=== PATIENT | female | born 1945 | race American Indian/Alaskan Native ===

== ENCOUNTER 2016-05-28 06:03 | Inpatient (IN) | payer OTHER ==
[2016-05-28] VITALS (17 sets, daily range): BP systolic 84–178; BP diastolic 57–101
[~2016-05-28] VITALS: Ht 152.4 cm; Wt 69.6 kg
--- NOTE | ~2016-05-28 | EKG ---
[address] [address] ELECTROCARDIOGRAM REPORT Name: ELIDIA PERALTA Room #: 243- ADM IN M.R.#: [id number] Admission: 05/28/16 Attend Phys: Mandeep Riggs MD Discharge: Date of : 49 Report #: [id number] THIS REPORT FOR: //name// [facility] Test Date: 2016-06-03 Test Time: 20:16:04 Pat Name: ELIDIA PERALTA Department: Room: 243 Gender: F Fire Safety Inspector: José Miguel CIFUENTES : 1945 Requested By: Mandeep Riggs Order Number: [id number] MD: Nazario Jimenez Measurements Intervals [place] Rate: 111 P: 74 CA: 136 QRS: -22 QRSD: 89 T: 48 QT: 312 QTc: 424 Interpretive Statements Sinus tachycardia Borderline left axis deviation Low voltage, extremity leads Compared to ECG 05/30/2016 14:41:59 Low QRS voltage now present Myocardial infarct finding no longer present Electronically Signed On 06-06-2016 10:44:27 STOCK DRIER TENDER by Nazario Jimenez [email or web address] <ELECTRONICALLY SIGNED> By: Nazario Jimenez MD 06/06/16 1044 15 15 Nazario Jimenez MD /EPI
--- NOTE | ~2016-05-28 | HC ---
[facility] [place] [address] CONSULTATION Name: ELIDIA PERALTA Room #: 237-P ADM IN M.R.#: [id number] Admission: 05/28/16 Attend Phys: Mandeep Riggs MD Discharge: Date of : 49 Report #: [id number] THIS REPORT FOR: //name// CC: Mandeep Riggs MD REFERRING PHYSICIAN: Mandeep Riggs MD REASON FOR REFERRAL: Acute respiratory failure. HISTORY OF PRESENT ILLNESS: The patient is a 70-year-old white female who presents to the emergency room with progressive dyspnea. A pulmonary consultation was requested. The patient has known COPD. She continues to smoke. She started to notice that she was more short of breath starting yesterday. She was in fact seen by Dr. Riggs in the office. She was advised to get admitted, but the patient refused. She comes to the emergency room with acute respiratory distress. Initial arterial blood gas shows severe acute on chronic hypercapnic hypoxic respiratory failure. She was placed on BiPAP. Currently, she is tolerating BiPAP fairly well. Arterial blood gas has improved. Her chest x-ray on admission revealed no obvious consolidation air bronchogram. No effusion seen. PAST MEDICAL HISTORY: Remarkable for COPD/questionable asthma, tobacco abuse, having smoked most of her life, had a pack a day, hypertension, gastroesophageal reflux disease, irritable bowel syndrome, severe osteoarthritis, anxiety disorder. Should also include remote history of pulmonary embolus. ALLERGIES: CEPHALOSPORINS, it causes hives. HYDROCODONE, reactions not specified. HOME MEDICATIONS: Include Diovan, Singulair, Ray-Dur 400 mg p.o. b.i.d., K-Dur, Tawana, calcium D vitamin D supplements, Lumigan, brimonidine tartrate eyedrops, nebulized albuterol q. 4 hours p.r.n., nebulized ipratropium q. 4 hours p.r.n., Spiriva one capsule once a day, Pravachol, Centrum, Ventolin 2 puffs p.r.n., Zithromax, prednisone 40 mg once a day that was started yesterday, promethazine, Omnicef. FAMILY HISTORY: Noncontributory. SOCIAL HISTORY: She continues to smoke about a pack a day. She quit a few days ago. She had been down to half a pack a day. She denies any alcohol abuse. She is remarried. [facility] [address] [place] [address] CONSULTATION Name: ELIDIA PERALTA Room #: 237-P [facility]#: [id number] Admission: 05/28/16 Attend Phys: Mandeep Riggs MD Discharge: Date of : 49 Report #: [id number] REVIEW OF SYSTEMS: As mentioned above, otherwise 10-point system review deferred as the patient is currently on noninvasive positive pressure ventilation. PHYSICAL EXAMINATION: GENERAL: She is in moderate respiratory distress, tolerating BiPAP. VITAL SIGNS: Temperature is pending. Pulses 140, respiratory rate is 30, blood pressure 158 mmHg, saturation 96% on supplemental oxygen. HEENT: Normocephalic, atraumatic. NECK: Supple, without lymphadenopathy or thyromegaly. CHEST: Breath sounds are decreased bilaterally with mild expiratory wheezes. CARDIOVASCULAR: Normal S1, S2. No murmurs or gallop. There is no JVD. There is no carotid bruit. Pulses are 2+/4+ bilaterally. ABDOMEN: Soft, nontender, no organomegaly or masses felt. GENITOURINARY AND RECTAL: Deferred. EXTREMITIES: There is no edema, cyanosis or clubbing. LABORATORY DATA: Chest x-ray as mentioned above. Arterial blood gas on admission revealed pH 7.16, pCO2 98, pO2 78. Follow up arterial blood gas revealed pH 7.25, pCO2 73 and pO2 of 93 on FIO2 of 40%. Electrolytes unremarkable. WBC 10,200, hemoglobin is 16.7. There are no bandemia noted. IMPRESSION: 1. Acute on chronic hypercapnic hypoxic respiratory failure in this 70-year-old white female. Etiology is due to exacerbation of apparent severe chronic obstructive pulmonary disease with possible component of asthma. 2. Exacerbation of chronic obstructive pulmonary disease, severity unknown, but suspect significant impairment. 3. Continued tobacco abuse. According to family, she quit smoking approximately 3 days ago. 4. Probable chronic hypercapnia. Note that her blood gas shows severe hypercapnia with partial compensation with bicarbonate of 35 on admission. Suspect a baseline hypercarbia may be around 60 to mid 50s. Arterial blood gas when she is stable would be helpful. 5. Polycythemia perhaps related to chronic hypoxia or hemoconcentration due to dehydration due to increased work of breathing and insensible water loss. Follow up hemoglobin. If the patient remains polycythemic, she should be evaluated for hypoxia, and treat. If polycythemia persists, she may benefit from occasional phlebotomy. RECOMMENDATION: Continue noninvasive positive pressure ventilation, wean O2 for saturation 88-90% to avoid paradoxical hypercapnia. Corticosteroids and bronchodilators start along with broad spectrum antibiotics. She is allergic to cephalosporins, so will use Zosyn. Her reactions to cephalosporins is said to be hives. We will also initiate doxycycline. DVT and GI prophylaxis will be addressed. Follow up H and H, IV fluids. [facility] [address] [place] [address] CONSULTATION Name: ELIDIA PERALTA Room #: 237-P ADM IN M.R.#: [id number] Admission: 05/28/16 Attend Phys: Mandeep Riggs MD Discharge: Date of : 49 Report #: [id number] The patient should be consulted for smoke cessation when she is improved. Thank you for this consultation. <ELECTRONICALLY SIGNED> By: Phillip Hoff MD 05/28/16 1722 1145 1324 Phillip Hoff MD /nt
--- NOTE | ~2016-05-28 | O ---
[facility] [place] [address] OPERATIVE REPORT Name: ELIDIA PERALTA Room #: 243-P ADM IN M.R.#: [id number] Admission: 05/28/16 Attend Phys: Mandeep Riggs MD Discharge: Date of : 49 Report #: [id number] THIS REPORT FOR: //name// CC: Mandeep Riggs MD DATE OF SERVICE: 06/11/2016 DATE OF SURGERY: 06/11/2016. SURGEON: Ron Little MD PREOPERATIVE DIAGNOSES: 1. Respiratory failure. 2. Community-acquired pneumonia. 3. Chronic obstructive pulmonary disease. POSTOPERATIVE DIAGNOSES: 1. Respiratory failure. 2. Community-acquired pneumonia. 3. Chronic obstructive pulmonary disease. OPERATION PERFORMED: Tracheotomy with Yessenia flap. ANESTHESIA: General endotracheal. INDICATIONS: The patient is a 70-year-old female, admitted since 05/30/2016, after presenting through the emergency room with respiratory failure. She has failed weaning trials. I have been consulted to see her for tracheotomy. This was discussed with the family who had made the decision to proceed. DESCRIPTION OF PROCEDURE: The patient was transferred from the ICU to the operating room. She was transferred from her ICU bed to the operating room bed. A shoulder roll was placed. The neck was extended. General anesthesia was achieved via an indwelling endotracheal tube without problem. Then, the neck was marked through a preexisting thyroidectomy scar and injected with 1% Xylocaine with 1:100,000 epinephrine. She was then prepped and draped in a sterile fashion. The procedure began with an incision to the same scar. This was dissected down through scar tissue to the strap muscles. Elevation was made superiorly and inferiorly with a Harmonic scalpel. Strap muscles were then dissected off the trachea. There was dense scarring present from the previous tracheotomy. Care was taken to stay in the midline, and to avoid the tracheoesophageal groove, the soft tissue was dissected down to the inferior portion of the trachea where this was not eschared. This was done so that landmarks could be achieved. [facility] [address] [place] [address] OPERATIVE REPORT Name: ELIDIA PERALTA Room #: 243-P [facility] IN M.R.#: [id number] Admission: 05/28/16 Attend Phys: Mandeep Riggs MD Discharge: Date of : 47 Report #: [id number] Hemostasis was assured with bipolar cautery, although there was minimal bleeding. A cricoid hook was then placed, and the cricoid and the larynx elevated up and out of the neck. Entrance was then made into the trachea between the second and third tracheal ring. A standard Yessenia flap was created inferiorly based. The flap was then sutured to the inferior skin flap with interrupted 2-0 Vicryl. In consult with anesthesia, the indwelling endotracheal tube balloon was deflated, and this was removed. The trachea was suctioned, and a #6 cuffed nonfenestrated Shiley was placed without problem. Once in place, the skin edges were loosely approximated with interrupted 2-0 Vicryl. The flanges of the tracheotomy tube were secured to the skin with interrupted 2-0 silk, and then, Velcro trach ties applied. The patient tolerated the procedure well. There were no complications. Blood loss was 5 mL. She was transferred from the operating room back to the intensive care unit room without problem. <ELECTRONICALLY SIGNED> By: Ron Little MD 06/13/16 1526 1728 1914 Ron Little MD /nt
--- NOTE | ~2016-05-28 | H ---
[facility] [place] [address] HISTORY AND PHYSICAL Name: ELIDIA PERALTA Room #: 243-P ADM IN M.R.#: [id number] Admission: 05/28/16 Attend Phys: Mandeep Riggs MD Discharge: Date of : 49 Report #: [id number] THIS REPORT FOR: //name// CC: Sebas Riggs MD DATE OF SERVICE: 06/11/2016 Preoperative consultation note. SURGEON: Ron Little MD. REASON FOR CONSULTATION: Need for tracheotomy. HISTORY OF PRESENT ILLNESS: The patient is a 70-year-old female admitted on 05/28/2016, presenting to the emergency room with shortness of breath and progressive respiratory failure. She had been seen in Dr. Riggs's office 24 hours prior, treated with antibiotics and steroids, but worsening. She was found to have pneumonia, complicating history of COPD with a longstanding history of tobacco use. The patient has failed weaning trials and is currently intubated and ventilated. I have been asked to evaluate for placement of tracheotomy tube. PAST MEDICAL HISTORY: Significant for COPD, hypertension, reflux, irritable bowel syndrome, severe arthritis, and anxiety. Status post total thyroidectomy. MEDICATIONS: Contained in her MAR. ALLERGIES: CEFACLOR and HYDROCODONE. SOCIAL HISTORY: She is a longtime smoker, smoking a pack a day, drinks alcohol occasionally. She is and lives with her . REVIEW OF SYSTEMS: Difficult secondary to intubation. PHYSICAL EXAMINATION: GENERAL: A well-developed, 70-year-old female, appearing older than her stated age. VITAL SIGNS: Show temperature of 99.6, blood pressure of 119/67, pulse of 107, respirations of 17. She is ventilated and intubated. HEENT: She is normocephalic. Nasal exam shows a deviated septum. There was endotracheal tube and orogastric tube in place, difficult to examine. The hypopharynx could not be examined because of the same. NECK: Shows a midline trachea. There is a well-healed thyroidectomy scar present. The patient is status post thyroidectomy. [facility] [address] [place] [address] HISTORY AND PHYSICAL Name: ELIDIA PERALTA Room #: 243-P [facility] IN ..#: [id number] Admission: 05/28/16 Attend Phys: Mandeep Riggs MD Discharge: Date of : 47 Report #: [id number] LUNGS: Show ventilated breath sounds. LABORATORY DATA: Recent blood work shows white count of 9600 with hemoglobin of 9. The patient has elevated sodium of 151, with decreased potassium of 3.3, chloride of 110, BUN of 9, with creatinine of 0.3. Chest x-ray done this morning showed a small left pleural effusion with minor left lower lung infiltrate. ASSESSMENT: 1. Respiratory failure, felt secondary to community-acquired pneumonia. Day #12 with ventilation and intubation. The patient has been counseled by their medical team on options of tracheotomy. I also reviewed the indications, alternatives, benefits, and potential risks of tracheotomy. They understand and desire to proceed. This will be done this afternoon. 2. Chronic obstructive pulmonary disease. 3. Long-term tobacco smoker with continuing. 4. Ileus. 5. Anemia mixed. 6. Hypokalemia, on replacement. PLAN: Tracheotomy. Again, I have reviewed the procedure, indications, alternatives, benefits, potential risks with the patient's family, which was extended and present in the room. The patient also nodded awareness. They understand and desired to proceed. <ELECTRONICALLY SIGNED> By: Ron Little MD 06/11/16 1737 1527 1702 Ron Little MD /nt
--- NOTE | ~2016-05-28 | H ---
[facility] [place] [address] HISTORY AND PHYSICAL Name: ELIDIA PERALAT Room #: 251-P ADM IN M.R.#: [id number] Admission: 05/28/16 Attend Phys: Mandeep Riggs MD Discharge: Date of : 49 Report #: [id number] THIS REPORT FOR: //name// CC: Mandeep Riggs DATE OF SERVICE: 05/28/2016 CHIEF COMPLAINT: Shortness of air. HISTORY OF PRESENT ILLNESS: The patient is a 70-year-old female who presented to the ER this morning with shortness of air. She had been in our office the day before. We tried to admit her, but she declined. She was having shortness of air then. We did give her a steroid shot and some antibiotics. She has a history of COPD, apparently severe. She does continue to smoke in spite of that. PAST MEDICAL HISTORY: Her past history is significant for: 1. COPD. 2. Hypertension. 3. Reflux. 4. Irritable bowel. 5. Severe arthritis. 6. Anxiety. MEDICATIONS: Include valsartan and hydrochlorothiazide 160/12.5, Singulair 10 mg, Ray-Dur 400 b.i.d., potassium 20 mEq b.i.d., Tawana 180 mg a day, calcium daily, daily, brimonidine drops daily, albuterol p.r.n., Atrovent p.r.n., Pravachol 40 mg a day, folic acid daily, recently Zithromax and cefdinir and prednisone 40 mg. ALLERGIES: CEFACLOR and HYDROCODONE. SOCIAL HISTORY: She smokes still pack a day, does drink alcohol occasionally. No recreational drugs. She is and lives with her . REVIEW OF SYSTEMS: CONSTITUTIONAL: Positive for fatigue, shortness of air and weakness. HEENT: No headaches or visual changes. CHEST: Shortness of air and cough. No chest pain. GASTROINTESTINAL: No nausea, vomiting, diarrhea or constipation. GENITOURINARY: No burning or frequency. EXTREMITIES: No new joint pains: PHYSICAL EXAMINATION: VITAL SIGNS: Blood pressure in the ER 178/101, pulse was 149, respiratory rate was 36 and O2 sat was 92% on BiPAP, but it was only 70s on room air. [facility] [address] [place] [address] HISTORY AND PHYSICAL Name: ELIDIA PERALTA Room #: 251-P [facility] IN M.R.#: [id number] Admission: 05/28/16 Attend Phys: Mandeep Riggs MD Discharge: Date of : 49 Report #: [id number] GENERAL: She is in moderate respiratory distress, but she is awake. HEENT: Her mucous membranes are moist. NECK: Supple. No adenopathy, thyromegaly or bruits. CHEST: Shows diffuse wheeze and poor air movement. CARDIOVASCULAR: Tachycardia with regular rhythm. ABDOMEN: Soft. No masses. Bowel sounds are active. EXTREMITIES: Show no edema. Pulses are intact. LABORATORY DATA: EKG showed sinus tachycardia, currently 143. No acute ST-segment changes. ABG; A pH of 7.165, pCO2 of 98, pO2 of 78 and lactate is 2.26. Sodium 138, potassium 4.3, chloride 98, bicarbonate 35, BUN 10, creatinine 0.8 and glucose 150. Troponin less than 0.05. BNP 90. WBC is 10.2, hemoglobin 16.7, hematocrit 49.4 and platelet count 279,000. Chest x-ray shows air trapping, some interstitial markings that are increased from baseline. ASSESSMENT: Acute respiratory failure with hypercapnia. She has been placed on BiPAP. We will consult pulmonary. She is going to be intubated if necessary. She is a full code. We will give IV steroids, breathing treatments and antibiotics. We will give her Ativan for anxiety. Control her blood pressure with her basal meds as well. <ELECTRONICALLY SIGNED> By: Mandeep Riggs MD 05/30/16 1235 1028 1059 Mandeep Riggs MD /nt
--- NOTE | ~2016-05-28 | 2DMMODE ---
[facility] [place] [address] 2 D/M-MODE ECHOCARDIOGRAM Name: ELIDIA PERALTA Room #: 251-P [facility] IN ..#: [id number] Admission: 05/28/16 Attend Phys: Mandeep Riggs, Discharge: Date of : 49 Date of Service: 05/30/16 0727 Report #: [id number] THIS REPORT FOR: //name// Transthoracic Echocardiography Ordering physician: Yoana Almonte Referring physician: Yoana Almonte Funeral Car Driver: Kathy Rodrigues Indications/History: Pulmonary HTN, elevated troponin. Hx: COPD, current tobacco abuse, HTN BP: 178 / HR: 110bpm Height: 60in Weight: 129.7lb 106 Study data: M-mode, complete 2D, complete spectral Doppler, and color Doppler. Location: Bedside. Routine. Image quality was adequate. The study was technically limited due to poor patient compliance and restricted patient mobility. Patient in ICU sitting up in bed on breathing machine. 2D measurements Normal Normal LVID ED 33.7mm 36-57 IVS ED 1.2mm 6-11 LVID ES 24.3mm 23-40 LVPW ED 1.1mm 6-11 LA volume 27ml/m2 16-28 AoRoot diam 31.2mm 21-37 index ED LVOT diameter 20mm 18-23 Findings: Left ventricle: The cavity size was normal. Mild septal hypertrophy. Systolic function was normal. The estimated ejection fraction was in the range of 55% to 60%. Wall motion was normal. Right ventricle: The cavity size was normal. Systolic function was normal. Right atrium: The atrium was normal in size. Left atrium: The atrium was normal in size. Volume index: 27ml/m2 (S). [address] [address] 2 D/M-MODE ECHOCARDIOGRAM Name: ELIDIA PERALTA Room #: 251-P [facility] IN M.R.#: [id number] Admission: 05/28/16 Attend Phys: Mandeep Riggs, Discharge: Date of : 49 Date of Service: 05/30/16 0727 Report #: [id number] Aortic valve: Poorly visualized. Thickened leaflets. Doppler: There was no stenosis. No regurgitation. Peak velocity: 122.9cm/s (S). Mitral valve: Mildly thickened, mildly calcified leaflets . Doppler: There was no evidence for stenosis. Mild regurgitation. Peak E-wave velocity: 173.3cm/s. Peak gradient: 12mm Hg (D). Tricuspid valve: Structurally normal valve. Doppler: There was no evidence for stenosis. Mild regurgitation. Regurgitant peak velocity: 297.6cm/s. Peak RV-RA gradient: 35mm Hg (S). Pulmonic valve: Poorly visualized. Doppler: There was no evidence for stenosis. Pericardium: There was no pericardial effusion. Aorta: Aortic root: The aortic root was normal in size. Pulmonary artery: Systolic pressure was estimated to be 50mm Hg. Diastolic function: The study is not technically sufficient to allow evaluation of LV diastolic function due to tachycardia. Systemic veins: Inferior vena cava: The vessel was dilated; respirophasic changes in dimension were absent. Conclusions 1. Left ventricle: Systolic function was normal. The estimated ejection fraction was in the range of 55% to 60%. Wall motion was normal. 2. Aortic valve: Poorly visualized. There was no stenosis. No regurgitation. 3. Mitral valve: Mildly thickened, mildly calcified leaflets . Mild regurgitation. 4. Pericardium, extracardiac: There was no pericardial effusion. 5. Pulmonary arteries: Systolic pressure was estimated to be 50mm Hg. <ELECTRONICALLY SIGNED> By: Esau Bauman MD, [facility] 05/30/16902 0727 2 Esau Bauman MD, [facility] /briana
--- NOTE | ~2016-05-28 | EKG ---
[address] [place] [address] ELECTROCARDIOGRAM REPORT Name: ELIDIA PERALTA Room #: 170-1 ADM IN M.R.#: [id number] Admission: 05/28/16 Attend Phys: Mandeep Riggs MD Discharge: Date of : 49 Report #: [id number] THIS REPORT FOR: //name// [facility] ED Test Date: 2016-05-28 Test Time: 07:34:52 Pat Name: ELIDIA PERALTA Department: Room: 170 Gender: F Impregnating Machine Operator: rizwana : 1945 Requested By: Mily Wood Order Number: [id number] MD: Nazario Jimenez Measurements Intervals Prim Rate: 143 P: 69 UT: 223 QRS: -67 QRSD: 116 T: 18 QT: 330 QTc: 509 Interpretive Statements Sinus tachycardia Prolonged UT interval LAE, consider biatrial enlargement Nonspecific IVCD with LAD Inferior infarct, old Lateral leads are also involved No previous ECG available for comparison Electronically Signed On 05-28-2016 8:34:13 PASSENGER AGENT by Nazario Jimenez [email or web address] <ELECTRONICALLY SIGNED> By: Nazario Jimenez MD 05/28/1634 3 3 Nazario Jimenez MD /EPI
--- NOTE | ~2016-05-28 | P ---
[facility] [place] [address] PROCEDURE REPORT Name: ELIDIA PERALTA Room #: 435-P [facility] IN M.R.#: [id number] Admission: 05/28/16 Attend Phys: Mandeep Riggs MD Discharge: Date of : 49 Report #: [id number] THIS REPORT FOR: //name// CC: Mandeep Riggs DATE OF SERVICE: 06/16/2016 BRIEF HISTORY: The patient is a 70-year-old woman with dysphagia and a tracheostomy and malnutrition with need for enteral feedings. She currently is receiving nasogastric feedings. PREOPERATIVE DIAGNOSES: Dysphagia and malnutrition with a tracheostomy. POSTOPERATIVE DIAGNOSES: Dysphagia and malnutrition with a tracheostomy. MEDICATIONS: Deep sedation with propofol per Anesthesia. SPECIMEN: None. ESTIMATED BLOOD LOSS: 3 mL. NAME OF THE PROCEDURE: Percutaneous endoscopic gastrostomy and tube placement. FINDINGS: Prior to propofol sedation, procedure of PEG tube placement was discussed with the patient as well as potential risks and its complications. She indicates she understands and desires to proceed. DESCRIPTION OF PROCEDURE: With the patient in supine position, head and chest was raised about 15-20 degrees. Subsequently, the Sonatypei video endoscope was inserted in the cervical esophagus and advanced under direct vision into the stomach. Examination of esophagus revealed normal mucosa. The squamocolumnar junction was unremarkable. A hiatus hernia was not seen. Scope was advanced into the stomach, was examined on end view as well as retroflexed views. She had normal-appearing gastric mucosa. No ulcers were seen. No mass lesions were seen. No retained solids or liquids were seen. The stomach, pylorus, duodenal bulb and postbulbar sweep were inspected and noted to be within normal limits. The scope was withdrawn back into the stomach and it was fully insufflated with air. Upon insufflation of stomach with air, there was a very bright transilluminating light, just below the umbilicus, essentially in the midline or just slightly left to the midline. Using a probing finger, an indentation was made into the gastric lumen. Skin was infiltrated with Xylocaine using 6 SafeTrack technique, skinning needle was advanced into the gastric lumen under direct endoscopic vision without difficulty. Subsequently, 1 cm skin incision was made introducing needle and stylet advanced into the stomach without difficulty. A guidewire was inserted and the tube was pulled out of the mouth. Subsequently, a 20-Sami gastrostomy tube was advanced over the wire and [facility] [address] [place] [address] PROCEDURE REPORT Name: ELIDIA PERALTA Roderick Room #: 435-P [facility] IN .R.#: [id number] Admission: 05/28/16 Attend Phys: Mandeep Riggs MD Discharge: Date of : 49 Report #: [id number] bleeding tip seen coming through the incision was grasped and the tube was pulled into place. The endoscope was reinserted and final adjustments were made under direct endoscopic vision. The patient tolerated the procedure well. In addition, external restraining device was applied. DISPOSITION: PEG tube placed without difficulty. We will observe for several hours and then resume tube feedings later this evening. <ELECTRONICALLY SIGNED> By: Asael Molina MD 06/16/16 1943 1505 1818 Asael Molina MD /nt
--- NOTE | ~2016-05-28 | EKG ---
[address] [place] [address] ELECTROCARDIOGRAM REPORT Name: ELIDIA PERALTA Room #: 251-P ADM IN M.R.#: [id number] Admission: 05/28/16 Attend Phys: Mandeep Riggs MD Discharge: Date of : 49 Report #: [id number] THIS REPORT FOR: //name// [facility] Test Date: 2016-05-30 Test Time: 14:41:59 Pat Name: ELIDIA PERALTA Department: Room: 251 Gender: F Radiation Safety Officer: José Miguel CIFUENTES : 1945 Requested By: Yoana Almonte Order Number: [id number] MD: Esau Bauman Measurements Intervals [place] Rate: 100 P: 79 SC: 131 QRS: -40 QRSD: 88 T: 60 QT: 352 QTc: 454 Interpretive Statements Sinus tachycardia RSR' in V1 or V2, probably normal variant Inferior infarct, old No previous ECGs available for comparison Electronically Signed On 05-30-2016 15:05:33 REIMBURSEMENT REP by Esau Bauman [email or web address] <ELECTRONICALLY SIGNED> By: Esau Bauman MD, [facility] 05/30/16 1505 1441 1441 Esau Bauman MD, [facility] /EPI
[~2016-05-28 06:03] MED LIST: ALBUTEROL2.5 MG/31 INH; ALLEGRA ALLERG180 MG PO; AZITHROMYCIN 2250 MG; BETIMOL10 ML OPHTHALMIC; BILBERRY1 EAC1 PO; BRIMONIDINE TAR15 M1 OPHTHALMIC; CALCIUM 600 +1 EAC1 PO; CEFDINIR300 MG PO; CENTRUM ULTRA1 EACH PO; CHOLESTEROL MED; DIOVAN HCT 1601 EACH PO; FISH OIL 1,0001 EAC5 PO; IPRATROPIU0.2 MG/1 M INH; LUMIGAN2.5 M1 OPHTHALMIC; PERCOCET 5-3251 EACH PO; POTASSIUM20 PO; PRAVACHOL40 MG PO; PREDNISONE 10 M10 MG PO; PROMETHAZINE V480 M1 PO; RELAFEN500 MG PO; SINGULAIR 10 MG10 M1 PO; SPIRIVA INH; THEO-DUR200 MG PO; VENTOLIN HFA 1818 GM INH
[2016-05-28 06:14] LABS: ABG SAMPLE TYPE ARTERIAL; BE(vivo) 1.6 mmol/L (-2 to +3); HCO3 34.6 mmol/L (22.0-26.0); LACTATE 2.26 mmol/L (0.5-2.0); O2(CT) 22.6 mL/dL (15.0-23.0); PCO2 98.2 mmHg (35.0-45.0); PO2 78.4 mmHg (80.0-100.0); STICK SITE L.BRACHIAL; pH 7.165 (7.360-7.450); sO2 91.1 % (92.0-98.0); tCO2 37.6 mmol/L (24.0-30.0)
[2016-05-28 06:19] LABS: ABSOLUTE NEUTROPHILS 5.9 thou/uL (1.4-8.2); BASOPHILS 0.8 % (0.0-2.0); EOSINOPHILS 0.1 % (0.0-3.0); HEMATOCRIT 49.4 % (37.0-47.0); HEMOGLOBIN 16.7 gm/dL (12.0-15.0); LYMPHOCYTES 30.1 % (24.0-44.0); MCH 30.8 pg (26.0-34.0); MCHC 33.8 % (28.0-37.0); MCV 91.1 fL (80.0-100.0); MONOCYTES 10.7 % (1.0-8.0); PLATELET COUNT 279 thou/uL (150-400); POLYS 58.3 % (36.0-66.0); RBC 5.43 mil/uL (4.20-5.00); RDW 13.4 % (10.5-14.5); WBC 10.2 thou/uL (4.0-11.0)
[2016-05-28 06:27] LABS: CREATININE 0.8 mg/dL (0.6-1.3); POTASSIUM 4.3 mmol/L (3.5-5.1)
[2016-05-28 06:31] LABS: MANUAL DIFF NO
[2016-05-28 06:40] LABS: TROPONIN-I 0.05 ng/mL (<0.04-0.07)
[2016-05-28 08:29] LABS: ABG SAMPLE TYPE ARTERIAL; BE(vivo) 2.5 mmol/L (-2 to +3); HCO3 32.2 mmol/L (22.0-26.0); LACTATE 1.64 mmol/L (0.5-2.0); O2(CT) 21.1 mL/dL (15.0-23.0); O2Hb 95.5 % (92.0-98.0); PCO2 73.6 mmHg (35.0-45.0); PO2 93.8 mmHg (80.0-100.0); STICK SITE L.BRACHIAL; pH 7.259 (7.360-7.450); sO2 95.8 % (92.0-98.0); tCO2 34.5 mmol/L (24.0-30.0)
[2016-05-28 08:30] LABS: ABG COMMENT BIPAP 14/8
[2016-05-28 11:41] LABS: URINE BLOOD 2+ (Negative); URINE COLOR YELLOW; URINE GLUCOSE-RANDOM* NEGATIVE (Negative); URINE KETONES NEGATIVE (Negative); URINE LEUKOCYTES-REFLEX NEGATIVE (Negative); URINE PROTEIN (DIPSTICK) 3+ (Negative); URINE SPECIFIC GRAVITY >= 1.030 (1.003-1.035); URINE UROBILINOGEN 0.2 E.U./dl (0.2-1.0)
[2016-05-28 11:43] LABS: ICTOTEST (BILI CONFIRMATORY) Negative (Negative); URINE BILIRUBIN NEGATIVE (Negative)
[2016-05-28 12:05] LABS: FINE GRANULAR CASTS 4-10 Moderate /LPF (None Seen); HYALINE CASTS 4-10 Moderate /LPF (None Seen)
[2016-05-28 12:06] LABS: COARSE GRANULAR CASTS 4-10 Moderate /LPF (None Seen)
[2016-05-28 12:07] LABS: SQUAMOUS 0-3 Few /LPF (0-3)
[2016-05-28 12:08] LABS: CRYSTALS None Seen /LPF (None Seen); URINE RBC 3-10 Few /HPF (0-2); URINE WBC-REFLEX 6-15 Few /HPF (0-5)
[2016-05-29] VITALS (26 sets, daily range): BP systolic 123–178; BP diastolic 76–106
[2016-05-29 03:40] LABS: HEMATOCRIT 42.2 % (37.0-47.0); MCH 30.3 pg (26.0-34.0); MCHC 33.2 % (28.0-37.0); MCV 91.3 fL (80.0-100.0); RBC 4.62 mil/uL (4.20-5.00); RDW 12.9 % (10.5-14.5); WBC 2.8 thou/uL (4.0-11.0)
[2016-05-29 03:44] LABS: CALCIUM 7.8 mg/dL (8.5-10.1); POTASSIUM 4.2 mmol/L (3.5-5.1)
[2016-05-29 21:03] LABS: ABG SAMPLE TYPE ARTERIAL; BE(vivo) -0.5 mmol/L (-2 to +3); HCO3 29.7 mmol/L (22.0-26.0); O2(CT) 20.4 mL/dL (15.0-23.0); O2Hb 94.3 % (92.0-98.0); PCO2 74.9 mmHg (35.0-45.0); PO2 84.1 mmHg (80.0-100.0); STICK SITE R.BRACHIAL; pH 7.216 (7.360-7.450); sO2 93.8 % (92.0-98.0)
[2016-05-29 21:04] LABS: FIO2 40 %
[2016-05-29 21:38] LABS: ALBUMIN 3.2 g/dL (3.4-5.0); DIRECT BILIRUBIN 0.1 mg/dL (<0.1-0.3); TOTAL BILIRUBIN 0.3 mg/dL (<0.1-1.0); TOTAL PROTEIN 6.4 g/dL (6.4-8.2)
[2016-05-29 21:43] LABS: APTT 23.9 Seconds (24.5-32.8); INR 1.1
[2016-05-30] VITALS (77 sets, daily range): BP systolic 75–192; BP diastolic 20–131
[2016-05-30 06:26] LABS: HEMATOCRIT 48.3 % (37.0-47.0); HEMOGLOBIN 15.4 gm/dL (12.0-15.0); MCH 30.1 pg (26.0-34.0); MCHC 31.8 % (28.0-37.0); MCV 94.5 fL (80.0-100.0); RBC 5.11 mil/uL (4.20-5.00); RDW 13.6 % (10.5-14.5); WBC 8.2 thou/uL (4.0-11.0)
[2016-05-30 06:39] LABS: MAGNESIUM 2.2 mg/dL (1.8-2.4); PHOSPHORUS 2.9 mg/dL (2.5-4.9)
[2016-05-30 06:43] LABS: CALCIUM 8.5 mg/dL (8.5-10.1); CREATININE 0.8 mg/dL (0.6-1.3); POTASSIUM 4.2 mmol/L (3.5-5.1); TROPONIN-I 0.13 ng/mL (<0.04-0.07)
[2016-05-30 10:37] LABS: ABG SAMPLE TYPE ARTERIAL; BE(vivo) 2.8 mmol/L (-2 to +3); HCO3 31.9 mmol/L (22.0-26.0); LACTATE 1.24 mmol/L (0.5-2.0); O2(CT) 18.8 mL/dL (15.0-23.0); O2Hb 92.1 % (92.0-98.0); PO2 65.8 mmHg (80.0-100.0); sO2 89.6 % (92.0-98.0); tCO2 34.1 mmol/L (24.0-30.0)
[2016-05-30 10:38] LABS: PCO2 70.4 mmHg (35.0-45.0); STICK SITE L.RADIAL; pH 7.274 (7.360-7.450)
[2016-05-30 10:39] LABS: TIDAL VOLUME 500 ml
[2016-05-30 13:03] LABS: ABG SAMPLE TYPE ARTERIAL; BE(vivo) 5.6 mmol/L (-2 to +3); LACTATE 1.19 mmol/L (0.5-2.0); O2(CT) 19.5 mL/dL (15.0-23.0); O2Hb 95.1 % (92.0-98.0); PCO2 59.6 mmHg (35.0-45.0); PO2 78.8 mmHg (80.0-100.0); pH 7.361 (7.360-7.450); sO2 94.9 % (92.0-98.0); tCO2 34.8 mmol/L (24.0-30.0)
[2016-05-30 13:04] LABS: STICK SITE L.RADIAL; TIDAL VOLUME 450 ml
[2016-05-31] VITALS (24 sets, daily range): BP systolic 106–156; BP diastolic 69–96
[2016-05-31 04:45] LABS: HEMATOCRIT 40.6 % (37.0-47.0); MCH 30.2 pg (26.0-34.0); MCV 91.3 fL (80.0-100.0); RBC 4.45 mil/uL (4.20-5.00); RDW 13.3 % (10.5-14.5)
[2016-05-31 04:55] LABS: CALCIUM 7.9 mg/dL (8.5-10.1); CREATININE 0.6 mg/dL (0.6-1.3); POTASSIUM 3.5 mmol/L (3.5-5.1)
[2016-05-31 04:58] LABS: HEMOGLOBIN 13.4 gm/dL (12.0-15.0)
[2016-06-01] VITALS (23 sets, daily range): BP systolic 96–158; BP diastolic 61–97
[2016-06-02] VITALS (25 sets, daily range): BP systolic 112–151; BP diastolic 67–88
[2016-06-02 14:38] LABS: HEMOGLOBIN 12.6 gm/dL (12.0-15.0); MCH 30.1 pg (26.0-34.0); MCHC 33.1 % (28.0-37.0); RBC 4.17 mil/uL (4.20-5.00); RDW 13.7 % (10.5-14.5); WBC 5.6 thou/uL (4.0-11.0)
[2016-06-02 14:46] LABS: CALCIUM 8.5 mg/dL (8.5-10.1); CREATININE 0.6 mg/dL (0.6-1.3); MAGNESIUM 2.3 mg/dL (1.8-2.4); POTASSIUM 3.6 mmol/L (3.5-5.1)
[2016-06-03] VITALS (24 sets, daily range): BP systolic 120–163; BP diastolic 70–90
[2016-06-03 03:46] LABS: HEMATOCRIT 34.6 % (37.0-47.0); HEMOGLOBIN 11.6 gm/dL (12.0-15.0); MCH 31.3 pg (26.0-34.0); MCHC 33.5 % (28.0-37.0); MCV 93.4 fL (80.0-100.0); RBC 3.7 mil/uL (4.20-5.00); WBC 5.8 thou/uL (4.0-11.0)
[2016-06-03 03:58] LABS: CALCIUM 7.9 mg/dL (8.5-10.1); CREATININE 0.6 mg/dL (0.6-1.3)
[2016-06-03 04:12] LABS: POTASSIUM 5.3 mmol/L (3.5-5.1)
[2016-06-03 08:14] LABS: ABG SAMPLE TYPE ARTERIAL; BE(vivo) 5.9 mmol/L (-2 to +3); LACTATE 0.88 mmol/L (0.5-2.0); O2(CT) 17.8 mL/dL (15.0-23.0); O2Hb 96.3 % (92.0-98.0); PCO2 52.6 mmHg (35.0-45.0); pH 7.402 (7.360-7.450); sO2 97.2 % (92.0-98.0); tCO2 33.6 mmol/L (24.0-30.0)
[2016-06-03 08:17] LABS: STICK SITE R.RADIAL; TIDAL VOLUME 450 ml
[2016-06-04] VITALS (25 sets, daily range): BP systolic 101–154; BP diastolic 62–88
[2016-06-04 05:09] LABS: HEMATOCRIT 37.5 % (37.0-47.0); HEMOGLOBIN 12.1 gm/dL (12.0-15.0); MCH 30.1 pg (26.0-34.0); MCHC 32.1 % (28.0-37.0); MCV 93.7 fL (80.0-100.0); RDW 13.8 % (10.5-14.5); WBC 9.5 thou/uL (4.0-11.0)
[2016-06-04 05:18] LABS: CALCIUM 8.3 mg/dL (8.5-10.1); CREATININE 0.5 mg/dL (0.6-1.3); POTASSIUM 3.5 mmol/L (3.5-5.1)
[2016-06-04 12:47] LABS: ABG SAMPLE TYPE ARTERIAL; BE(vivo) 6.6 mmol/L (-2 to +3); HCO3 36.4 mmol/L (22.0-26.0); LACTATE 1.04 mmol/L (0.5-2.0); O2(CT) 18.9 mL/dL (15.0-23.0); O2Hb 93.7 % (92.0-98.0); PO2 78.5 mmHg (80.0-100.0); sO2 93.5 % (92.0-98.0); tCO2 38.8 mmol/L (24.0-30.0)
[2016-06-04 12:49] LABS: PCO2 78.8 mmHg (35.0-45.0); STICK SITE R.RADIAL; pH 7.282 (7.360-7.450)
[2016-06-04 12:50] LABS: Pressure Support 5 cm H20; TIDAL VOLUME 430 ml
[2016-06-05] VITALS (25 sets, daily range): BP systolic 95–160; BP diastolic 55–87
[2016-06-05 04:52] LABS: CALCIUM 8.5 mg/dL (8.5-10.1); CREATININE 0.5 mg/dL (0.6-1.3); POTASSIUM 4.2 mmol/L (3.5-5.1)
[2016-06-05 04:57] LABS: HEMATOCRIT 37.9 % (37.0-47.0); HEMOGLOBIN 12.1 gm/dL (12.0-15.0); MCH 30.1 pg (26.0-34.0); MCHC 31.9 % (28.0-37.0); MCV 94.3 fL (80.0-100.0); RBC 4.02 mil/uL (4.20-5.00); RDW 13.8 % (10.5-14.5); WBC 10.7 thou/uL (4.0-11.0)
[2016-06-06] VITALS (24 sets, daily range): BP systolic 100–147; BP diastolic 60–87
[2016-06-06 04:20] LABS: HEMATOCRIT 35.3 % (37.0-47.0); HEMOGLOBIN 11.2 gm/dL (12.0-15.0); MCH 29.4 pg (26.0-34.0); MCHC 31.6 % (28.0-37.0); RBC 3.8 mil/uL (4.20-5.00); RDW 13.6 % (10.5-14.5); WBC 14.4 thou/uL (4.0-11.0)
[2016-06-06 04:34] LABS: CALCIUM 8.4 mg/dL (8.5-10.1); CREATININE 0.4 mg/dL (0.6-1.3); POTASSIUM 4.5 mmol/L (3.5-5.1)
[2016-06-07] VITALS (25 sets, daily range): BP systolic 87–152; BP diastolic 52–94
[2016-06-07 04:30] LABS: HEMATOCRIT 31.1 % (37.0-47.0); HEMOGLOBIN 10.1 gm/dL (12.0-15.0); MCH 29.7 pg (26.0-34.0); MCHC 32.5 % (28.0-37.0); MCV 91.1 fL (80.0-100.0); RBC 3.42 mil/uL (4.20-5.00); RDW 13.7 % (10.5-14.5); WBC 14.4 thou/uL (4.0-11.0)
[2016-06-07 04:38] LABS: CALCIUM 8.3 mg/dL (8.5-10.1); CREATININE 0.4 mg/dL (0.6-1.3); POTASSIUM 4.4 mmol/L (3.5-5.1)
[2016-06-08] VITALS (20 sets, daily range): BP systolic 88–152; BP diastolic 48–88
[2016-06-08 15:54] LABS: ALBUMIN 2.1 g/dL (3.4-5.0); CALCIUM 8.2 mg/dL (8.5-10.1); CREATININE 0.4 mg/dL (0.6-1.3); POTASSIUM 4.3 mmol/L (3.5-5.1); TOTAL BILIRUBIN 0.4 mg/dL (<0.1-1.0); TOTAL PROTEIN 4.8 g/dL (6.4-8.2)
[2016-06-09] VITALS (23 sets, daily range): BP systolic 73–127; BP diastolic 45–72
[2016-06-09 05:00] LABS: HEMATOCRIT 26.2 % (37.0-47.0); HEMOGLOBIN 8.6 gm/dL (12.0-15.0); MCH 30.2 pg (26.0-34.0); MCHC 32.9 % (28.0-37.0); RBC 2.85 mil/uL (4.20-5.00); RDW 13.9 % (10.5-14.5)
[2016-06-09 05:06] LABS: CALCIUM 7.8 mg/dL (8.5-10.1); CREATININE 0.4 mg/dL (0.6-1.3)
[2016-06-10] VITALS (26 sets, daily range): BP systolic 76–171; BP diastolic 45–99
[2016-06-10 04:15] LABS: HEMATOCRIT 26.5 % (37.0-47.0); HEMOGLOBIN 8.9 gm/dL (12.0-15.0); MCH 30.5 pg (26.0-34.0); MCHC 33.4 % (28.0-37.0); MCV 91.4 fL (80.0-100.0); RBC 2.9 mil/uL (4.20-5.00); RDW 13.9 % (10.5-14.5); WBC 8.9 thou/uL (4.0-11.0)
[2016-06-10 04:25] LABS: CALCIUM 7.8 mg/dL (8.5-10.1); CREATININE 0.4 mg/dL (0.6-1.3); POTASSIUM 3.3 mmol/L (3.5-5.1)
[2016-06-10 12:22] LABS: ABG SAMPLE TYPE ARTERIAL; BE(vivo) 9.2 mmol/L (-2 to +3); HCO3 37.4 mmol/L (22.0-26.0); LACTATE 0.84 mmol/L (0.5-2.0); O2(CT) 15.5 mL/dL (15.0-23.0); O2Hb 92.2 % (92.0-98.0); PO2 73.2 mmHg (80.0-100.0); pH 7.336 (7.360-7.450); sO2 93.2 % (92.0-98.0); tCO2 39.6 mmol/L (24.0-30.0)
[2016-06-10 12:24] LABS: PCO2 71.6 mmHg (35.0-45.0)
[2016-06-10 12:25] LABS: ABG COMMENT CPAP; Pressure Support 8 cm H20
[2016-06-10 13:31] LABS: PROTIME 10.2 Seconds (9.3-11.4)
[2016-06-11] VITALS (12 sets, daily range): BP systolic 104–141; BP diastolic 55–74
[2016-06-11 06:19] LABS: MCH 30.6 pg (26.0-34.0); MCHC 33.3 % (28.0-37.0); MCV 91.8 fL (80.0-100.0); RBC 2.94 mil/uL (4.20-5.00); RDW 14.1 % (10.5-14.5); WBC 9.6 thou/uL (4.0-11.0)
[2016-06-11 06:28] LABS: CALCIUM 7.7 mg/dL (8.5-10.1); CREATININE 0.3 mg/dL (0.6-1.3); POTASSIUM 3.3 mmol/L (3.5-5.1)
[2016-06-11 20:06] LABS: URINE POTASSIUM 24.5 (25.0-125.0); URINE POTASSIUM-mEq/L 17.5 mmol/L (Not Estab.)
[2016-06-12] VITALS (24 sets, daily range): BP systolic 91–140; BP diastolic 55–84
[2016-06-12 04:16] LABS: HEMATOCRIT 25.6 % (37.0-47.0); HEMOGLOBIN 8.5 gm/dL (12.0-15.0); MCH 30.7 pg (26.0-34.0); MCHC 33.3 % (28.0-37.0); RBC 2.78 mil/uL (4.20-5.00); RDW 13.9 % (10.5-14.5); WBC 8.8 thou/uL (4.0-11.0)
[2016-06-12 04:31] LABS: CALCIUM 7.8 mg/dL (8.5-10.1); CREATININE 0.3 mg/dL (0.6-1.3); POTASSIUM 3.5 mmol/L (3.5-5.1)
[2016-06-13] VITALS (23 sets, daily range): BP systolic 93–134; BP diastolic 53–77
[2016-06-13 19:46] LABS: CALCIUM 7.4 mg/dL (8.5-10.1); CREATININE 0.3 mg/dL (0.6-1.3); POTASSIUM 3.1 mmol/L (3.5-5.1)
[2016-06-14] VITALS (23 sets, daily range): BP systolic 97–155; BP diastolic 55–89
[2016-06-14 04:35] LABS: HEMATOCRIT 28.3 % (37.0-47.0); HEMOGLOBIN 9.2 gm/dL (12.0-15.0); MCH 30.4 pg (26.0-34.0); MCHC 32.3 % (28.0-37.0); RBC 3.01 mil/uL (4.20-5.00); RDW 14.4 % (10.5-14.5); WBC 7.3 thou/uL (4.0-11.0)
[2016-06-14 04:51] LABS: CALCIUM 8.4 mg/dL (8.5-10.1); CREATININE 0.4 mg/dL (0.6-1.3); POTASSIUM 3.5 mmol/L (3.5-5.1)
[2016-06-15 06:03] VITALS: BP 135/71
[2016-06-15 06:29] LABS: CALCIUM 6.7 mg/dL (8.5-10.1); CREATININE 0.3 mg/dL (0.6-1.3)
[2016-06-15 06:36] LABS: POTASSIUM 2.9 mmol/L (3.5-5.1)
[2016-06-15 08:00] VITALS: BP 133/75
[2016-06-15 12:00] VITALS: BP 180/100
[2016-06-15 16:00] VITALS: BP 147/92
[2016-06-15 19:40] VITALS: BP 114/58
[2016-06-16] VITALS (7 sets, daily range): BP systolic 111–124; BP diastolic 58–66
[2016-06-16 05:32] LABS: HEMATOCRIT 25.8 % (37.0-47.0); HEMOGLOBIN 8.6 gm/dL (12.0-15.0); MCH 30.8 pg (26.0-34.0); MCHC 33.3 % (28.0-37.0); MCV 92.6 fL (80.0-100.0); RBC 2.79 mil/uL (4.20-5.00); RDW 14.7 % (10.5-14.5); WBC 6.6 thou/uL (4.0-11.0)
[2016-06-16 05:54] LABS: CALCIUM 8.3 mg/dL (8.5-10.1); CREATININE 0.3 mg/dL (0.6-1.3); POTASSIUM 3.7 mmol/L (3.5-5.1)
[2016-06-17 04:20] VITALS: BP 142/68
[2016-06-17 08:00] VITALS: BP 116/65
[2016-06-17 12:00] VITALS: BP 118/67
[2016-06-17 15:42] VITALS: BP 122/64
[2016-06-17 20:58] VITALS: BP 120/60
[2016-06-17 23:36] VITALS: BP 152/78
[2016-06-18 04:55] VITALS: BP 128/62
[2016-06-18 09:00] VITALS: BP 103/55
[2016-06-18] MEDS ORDERED: NYAMYC15 GM TOP (13:02)
[2016-06-18 13:53] VITALS: BP 125/78
[2016-06-18 17:11] VITALS: BP 127/79
[2016-08-08] MEDS ORDERED: DALIRESP500 MCG PO (13:44)
[2016-08-08] MEDS ORDERED: COZAAR 50 MG TA50 M2 PO (13:44)
[2016-08-08] MEDS ORDERED: CLONIDINE0.1 PO (13:45)
[2016-08-08] MEDS ORDERED: LEVOTHYROXINE0.05 MG PO (13:45)
[2016-08-08] MEDS ORDERED: ALLEGRA ALLERG180 MG PO (13:46)
[2016-08-08] MEDS ORDERED: LASIX 20 MG TAB20 MG PO (13:46)
[2016-08-08] MEDS ORDERED: KLOR-CON 1010 MEQ PO (13:46)
[2016-08-08] MEDS ORDERED: VITAMIN D31000 UNI2 PO (13:47)
[2016-08-08] MEDS ORDERED: MULTIVITAMINS PO (13:47)
[2016-08-08] MEDS ORDERED: CALCIUM 600 +1 EAC1 PO (13:48)
[2016-08-08] MEDS ORDERED: BRIMONIDINE TAR1 BO1 OP (13:51)
[2016-08-08] MEDS ORDERED: CEFDINIR300 MG PO (13:53)
== END 2016-06-18 19:45 | disposition short-term general hospital (02) | DRG 4 ==
LOC: ER 06:03 → EROBS 07:42 → ICU 07:42 → 4S 07:42 → ICU 08:44 → 4S 06-14 22:04
PROVIDERS: Emergency Medicine; Family Medicine; Internal Medicine Pulmonary Disease; Nurse Practitioner
PROC: 5A09457 Assistance with Respiratory Ventilation, 24-96 Consecutive Hours, Continuous Positive Airway Pressure (ICD-10-PCS; principal; 2016-05-28)
PROC: 0BH17EZ Insertion of Endotracheal Airway into Trachea, Via Natural or Artificial Opening (ICD-10-PCS; 2016-05-30)
PROC: 5A1955Z Respiratory Ventilation, Greater than 96 Consecutive Hours (ICD-10-PCS; 2016-05-30)
PROC: 05HB33Z Insertion of Infusion Device into Right Basilic Vein, Percutaneous Approach (ICD-10-PCS; 2016-05-30)
PROC: 0B110F4 Bypass Trachea to Cutaneous with Tracheostomy Device, Open Approach (ICD-10-PCS; 2016-06-11)
PROC: 0DH68UZ Insertion of Feeding Device into Stomach, Via Natural or Artificial Opening Endoscopic (ICD-10-PCS; 2016-06-16)
PROC: BD1BYZZ Fluoroscopy of Mouth/Oropharynx using Other Contrast (ICD-10-PCS; 2016-06-18)
DX: A41.9 Sepsis, unspecified organism (principal); J18.9 Pneumonia, unspecified organism; J96.21 Acute and chronic respiratory failure with hypoxia; J96.22 Acute and chronic respiratory failure with hypercapnia; E43 Unspecified severe protein-calorie malnutrition; J44.1 Chronic obstructive pulmonary disease with (acute) exacerbation; E87.0 Hyperosmolality and hypernatremia; K56.7 Ileus, unspecified; F41.9 Anxiety disorder, unspecified; D75.1 Secondary polycythemia; R65.20 Severe sepsis without septic shock; E86.0 Dehydration; F17.210 Nicotine dependence, cigarettes, uncomplicated; D64.9 Anemia, unspecified; E87.6 Hypokalemia; R13.10 Dysphagia, unspecified; E89.0 Postprocedural hypothyroidism; K21.9 Gastro-esophageal reflux disease without esophagitis; M19.90 Unspecified osteoarthritis, unspecified site; H40.9 Unspecified glaucoma; Z96.1 Presence of intraocular lens; H35.30 Unspecified macular degeneration; Z98.42 Cataract extraction status, left eye; Z68.30 Body mass index [BMI] 30.0-30.9, adult; Z98.41 Cataract extraction status, right eye; Z86.711 Personal history of pulmonary embolism; Z98.890 Other specified postprocedural states; Z88.1 Allergy status to other antibiotic agents; Z88.8 Allergy status to other drugs, medicaments and biological substances
CPT/HCPCS: 10078; 10100; 27000; 50101; 50386; 50398; 50517; 56526; 56528; 57006; 62110; 62900

== ENCOUNTER → 2016-10-13 | Outpatient (CLI) | payer OTHER ==
[~2016-10-13] MED LIST changes: +BRIMONIDINE TAR1 BO1 OP; +CLONIDINE0.1 PO; +COZAAR 50 MG TA50 M2 PO; +DALIRESP500 MCG PO; +KLOR-CON 1010 MEQ PO; +LASIX 20 MG TAB20 MG PO; +LEVOTHYROXINE0.05 MG PO; +MULTIVITAMINS PO; +NYAMYC15 GM TOP; +VITAMIN D31000 UNI2 PO
== END ==
LOC: ULTRA 12:58
DX: E04.2 Nontoxic multinodular goiter (principal); R22.1 Localized swelling, mass and lump, neck

== ENCOUNTER → 2017-09-28 | Outpatient (CLI) | payer OTHER | LOC: ULTRA 09-25 06:37 | DX: E04.1 Nontoxic single thyroid nodule (principal); E89.0 Postprocedural hypothyroidism ==

== ENCOUNTER → 2017-11-05 | Outpatient (CLI) | payer OTHER | LOC: RAD 10:22 | DX: J44.9 Chronic obstructive pulmonary disease, unspecified (principal) ==

== ENCOUNTER 2018-09-05 19:40 | Inpatient (IN) | payer OTHER ==
[~2018-09-05] VITALS: Ht 152.4 cm; Wt 45.4 kg
[2018-09-05 19:44] VITALS: BP 174/90
[2018-09-05 20:24] LABS: HEMATOCRIT 41.2 % (37.0-47.0); HEMOGLOBIN 13.9 gm/dL (12.0-15.0); MCH 29.8 pg (26.0-34.0); MCHC 33.7 g/dL (28.0-37.0); MCV 88.4 fL (80.0-100.0); RBC 4.66 mil/uL (4.20-5.00); RDW 13.4 % (10.5-14.5); WBC 15.1 thou/uL (4.0-11.0)
[2018-09-05 20:26] LABS: CALCIUM 10.6 mg/dL (8.5-10.1); CREATININE 0.6 mg/dL (0.6-1.0); POTASSIUM 3.2 mmol/L (3.5-5.1)
[2018-09-05 20:29] LABS: BE(vivo) 12.9 mmol/L (-2 to +3); HCO3 41.4 mmol/L (22.0-26.0); PO2 99.2 mmHg (80.0-100.0); pH 7.378 (7.360-7.450); sO2 97.1 % (92.0-98.0)
[2018-09-05 20:35] LABS: TROPONIN-I 0.07 ng/mL (<0.06)
[2018-09-05 21:48] VITALS: BP 171/89
[2018-09-05 22:08] VITALS: BP 171/89
[2018-09-05 22:25] VITALS: BP 183/94
[2018-09-05] MEDS ORDERED: ROBAXIN 750 MG750 M1 PO (22:42)
[2018-09-05] MEDS ORDERED: MUCINEX600 MG PO (23:05)
[2018-09-05] MEDS ORDERED: NICOTINE TRANSD21 M1 (23:07)
[2018-09-06 00:59] VITALS: BP 156/78
--- NOTE | 2018-09-06 01:29 | EKG ---
[address] [place] [address] ELECTROCARDIOGRAM REPORT Name: FABIANELIDIA Room #: 356-P ADM IN M.R.#: [id number] ������������������ Admission: 09/05/18 ������������������ Attend Phys: Mandeep Riggs MD Discharge: ������������������ Date of : 49 Report #: [id number] ����������������������������������������������������������������� [id number] THIS REPORT FOR: //name// [facility] ED Test Date: 2018-09-05 Test Time: 20:12:45 Pat Name: ELIDIA PERALTA Department: Room: 356 Gender: F Senior Lead Developer: WILLY : 1945 Requested By: Cory Cam Order Number: [id number] MD: Owen Norwood Measurements Intervals [place] Rate: 125 P: 81 ME: 135 QRS: -45 QRSD: 99 T: 70 QT: 282 QTc: 407 Interpretive Statements Sinus tachycardia Bi-atrial enlargement LAD Poor R-wave progression Baseline wander Nonspecific ST-T wave changes Compared to ECG 06/03/2016 20:16:04 no significant changes Electronically Signed On 09-06-2018 1:29:11 CDT by Owen Norwood [email or web address] ��������������������������������������������� <ELECTRONICALLY SIGNED> ���������������������������������������� By: Owen Norwood MD ��������������������������������������������� 09/06/18 0129 11 11 Owen Norwood MD /EPI
[2018-09-06] MEDS ORDERED: ZOLOFT25 MG PO (02:02)
[2018-09-06 03:28] VITALS: BP 151/77
--- NOTE | 2018-09-06 04:08 | NUR ---
Admission history and assessments completed. Careplan initiated. Received orders to resume patients home meds. Some non formulary, patients daughter to bring home meds in. Oxygenation optimal with 3L/NC, diminished breath sounds. Very short of air with any activity.
[2018-09-06 07:57] VITALS: BP 141/84
--- NOTE | 2018-09-06 09:43 | NUR ---
ASSESSMENT: CM REVIEWED CHART AND MET WITH PATIENT AT THE BEDSIDE. PT IS ALERT AND ORIENTED X4. PT WAS ADMITTED DUE TO SOA/ ACUTE ON CHRONIC RESPIRATORY FAILURE. PT REPORTS SHE LIVES IN A HOUSE ALONE. PT REPORTS ABOUT 2 STEPS TO ENTER THE HOME WITH HANDRAILS. PT REPORTS SHE DOES NOT USE STEPS ONCE INSIDE. PT REPORTS HAVING A WALKER AT HOME FOR AMBULATION. PT STATES SHE IS INDEPENDENT WITH ADLS AND HAS A GRAB BAR AND SHOWER CHAIR. PT HAS CONTINUOUS OXYGEN ARRANGED AT HOME STATING SHE IS NORMALLY ON 2.5-3L AT HER BASELINE AND IS SUPPLIED THROUGH [facility]. PT REPORTS SHE HAS HAD HH YEARS AGO AND UNSURE THE AGENCY AND HAD ALSO BEEN TO [facility] BACK IN 2017. PT REPORTS SHE ANTICIPATES SHE IS ABLE TO GO HOME AT DISCHARGE AND DOES NOT FEEL SHE WILL NEED HH. PT STATES HER DAUGHTER IS VERY SUPPORTIVE AND COMES TO SEE HER DAILY AND HELPS COOK HER MEALS AND CLEAN. CM WILL CONTINUE TO FOLLOW TO ASSIST NEEDED.
[2018-09-06 11:19] VITALS: BP 164/90
[2018-09-06 15:30] VITALS: BP 153/92
--- NOTE | 2018-09-06 17:40 | NUR ---
Assumed care of Pt at 0700. Pt alert and oriented, in no acute distress. frustrated about hospital not carrying her home meds. breathing comfortably on 3L NC. complains of headache and bloating that she says is common with IV steroids. up w/ 1 assist to BSC. HR 110-120's, sinus. calls appropriately. pulm consult today. pt voicing no particular concerns. sputum sample sent to lab. pt progressing toward poc goals.
[2018-09-06 19:02] VITALS: BP 147/83
[2018-09-07 04:12] VITALS: BP 168/93
--- NOTE | 2018-09-07 05:03 | NUR ---
PT MAKING SLOW PROGRESS TOWARDS GOALS. PT UP TO BSC WITH SBA. SOA WITH EXERTION TO WHICH SHE RECOVERS OVER SEVERAL MINUTES WITH CONTROLLED DEEP BREATHS. PT STATES SHE IS HOPING TO GO HOME TODAY. SEE CHARTING.
[2018-09-07 07:54] VITALS: BP 154/91
[2018-09-07] MEDS ORDERED: LEVAQUIN 500 M500 M2 PO (08:43)
[2018-09-07 11:04] VITALS: BP 133/79
[2018-09-07 13:06] VITALS: BP 133/79
--- NOTE | 2018-09-07 13:13 | NUR ---
ON-GOING ASSESSMENT: CM REVIEWED CHART AND MET WITH PATIENT AT THE BEDSIDE. PT HAS ORDERS TO DISCHARGE HOME TODAY WITH HH. CM DISCUSSED WITH PATIENT. PT STATING SHE DOES NOT HAVE A PREFERENCE OF HH COMPANY BUT DOES NOT WANT TO [facility] SHE DID NOT HAVE A GOOD EXPERINCE WITH THEM WITH A FAMILY MEMBER. CM SENT REFERRAL TO [facility].
--- NOTE | 2018-09-07 13:55 | NUR ---
Assumed care of patient at 0700. Vitals have been stable. Remains on 3L NC, which is home dose of oxygen. Patient still extremely SOB with minimal activity. Productive cough. Complaints this morning that the steroids were "messing up" her stomach. Steroids discontinued by Dr. Riggs and started on Protonix. Reports this afternoon that stomach has settled and feels a little better; was able to eat some lunch. Up with SBA to BSC to void. Fall precautions in place and calls appropriately. May discharge home today; patient states she feels "so-so" about going home. Wants to shower with daughter's help later this afternoon and see how she feels. Attempting to progress towards POC. Will continue to monitor.
--- NOTE | 2018-09-07 14:53 | NUR ---
ON-GOING ASSESSMENT: CM REVIEWED CHART AND MET WITH PATIENT AT THE BEDSIDE. PT IS POSSIBLE DISCHARGE HOME WITH HH. CM DISCUSSED WITH PATIENT AND SHE REPORTS SHE DOES NOT HAVE A PREFERENCE OF HH AGENCY BUT DOES NOT WANT TO USE [facility] SHE DID NOT HAVE A GOOD EXPERIENCE WITH A FAMILY MEMBER BEFORE. CM SENT REFERRAL TO [facility]. [facility] CONTACTED CM AND REPORTS THEY CAN ACCEPT PATIENT FOR HH SERVICES AT DISCHARGE. IF PATIENT DISCHARGES TODAY THEY WILL SEE PATIENT TOMORROW. PT REPORTS HER DAUGHTER IS ABLE TO BRING HER PORTABLE OXYGEN TANK AT DISCHARGE. [facility] FAX:[phone].
[2018-09-07 17:50] VITALS: BP 126/73
[2018-09-07 19:00] VITALS: BP 150/56
[2018-09-08 03:13] VITALS: BP 128/74
--- NOTE | 2018-09-08 06:58 | NUR ---
Pt. stated she slept fair during the night. O2 at 3L/NC. Shortness of breath with exertion. C/O abdominal pain after breathing tx. Ibuprofen given with good relief. Denies being in pain this am. Up with assist to bathroom. Verbalized she is ready to go home today.
[2018-09-08 07:45] VITALS: BP 117/68
--- NOTE | 2018-09-08 12:08 | NUR ---
PT ALERT AND ORIENTED TIMES FOUR. VSS, 96%3L, SR ON TELE. PT DENIES PAIN. C/O SOA ON EXCRETION. PT TOLERATES MEDS AND MEALS. PT UP TO BSC WITH ASSIST ON ONE. PLANS FOR DISCHARGE THIS AFTERNOON. FAMILY AT BEDSIDE. PT PROGRESSING TOWRADS POC GOALS.
[2018-09-08 12:12] VITALS: BP 139/83
--- NOTE | 2018-09-08 15:50 | NUR ---
on-going assessment: cm notified [facility] that patient is discharging home today. cm faxed d/c orders to [facility].
[2018-09-09 07:14] LABS: ADENOVIRUS Negative (Negative); INFLUENZA A Negative (Negative); INFLUENZA B Negative (Negative); METAPNEUMOVIRUS Negative (Negative); PARAINFLUENZA 1 Negative (Negative); PARAINFLUENZA 2 Negative (Negative); PARAINFLUENZA 3 Negative (Negative); RSV A Negative (Negative); RSV B Negative (Negative)
[2018-09-10 18:10] LABS: RHINOVIRUS Negative (Negative)
== END 2018-09-08 16:46 | disposition home health service (06) | DRG 871 ==
LOC: ER 19:40 → EROBS 21:29 → 3W 21:29
PROVIDERS: Emergency Medicine; Pediatrics; ADMIT Family Medicine
DX: A41.9 Sepsis, unspecified organism (principal); J96.21 Acute and chronic respiratory failure with hypoxia; J96.22 Acute and chronic respiratory failure with hypercapnia; J44.1 Chronic obstructive pulmonary disease with (acute) exacerbation; J20.9 Acute bronchitis, unspecified; I10 Essential (primary) hypertension; M47.9 Spondylosis, unspecified; H40.9 Unspecified glaucoma; E89.0 Postprocedural hypothyroidism; J45.909 Unspecified asthma, uncomplicated; I27.20 Pulmonary hypertension, unspecified; M81.0 Age-related osteoporosis without current pathological fracture; Z87.891 Personal history of nicotine dependence; Z90.49 Acquired absence of other specified parts of digestive tract; Z98.42 Cataract extraction status, left eye; Z98.41 Cataract extraction status, right eye; Z93.1 Gastrostomy status; Z88.6 Allergy status to analgesic agent; Z88.8 Allergy status to other drugs, medicaments and biological substances; Z79.899 Other long term (current) drug therapy
CPT/HCPCS: 10879

== ENCOUNTER 2018-10-05 13:29 | Inpatient (IN) | payer OTHER ==
[~2018-10-05] VITALS: Ht 157.5 cm; Wt 43.0 kg
[~2018-10-05 13:29] MED LIST changes: +LEVAQUIN 500 M500 M2 PO; +MUCINEX600 MG PO; +NICOTINE TRANSD21 M1; +ROBAXIN 750 MG750 M1 PO; +ZOLOFT25 MG PO
[2018-10-05 13:30] VITALS: BP 156/92
[2018-10-05 14:13] LABS: ABSOLUTE NEUTROPHILS 4.6 thou/uL (1.4-8.2); EOSINOPHILS 0.9 % (0.0-3.0); HEMOGLOBIN 12.3 gm/dL (12.0-15.0); LYMPHOCYTES 16.5 % (24.0-44.0); MCH 29.4 pg (26.0-34.0); MCHC 33.3 g/dL (28.0-37.0); MCV 88.1 fL (80.0-100.0); MONOCYTES 8.2 % (1.0-8.0); PLATELET COUNT 278 thou/uL (150-400); POLYS 73.4 % (36.0-66.0); WBC 6.3 thou/uL (4.0-11.0)
[2018-10-05 14:19] LABS: CALCIUM 9.6 mg/dL (8.5-10.1); CREATININE 0.5 mg/dL (0.6-1.0); POTASSIUM 3.7 mmol/L (3.5-5.1)
[2018-10-05 14:29] LABS: TROPONIN-I 0.11 ng/mL (<0.06)
[2018-10-05 14:33] LABS: BE(vivo) 11.1 mmol/L (-2 to +3); HCO3 41.1 mmol/L (22.0-26.0); PCO2 83.7 mmHg (35.0-45.0); PO2 199.7 mmHg (80.0-100.0); pH 7.309 (7.360-7.450); sO2 99.2 % (92.0-98.0)
[2018-10-05 15:13] VITALS: BP 144/84
[2018-10-05 15:45] VITALS: BP 156/86
--- NOTE | 2018-10-05 17:18 | EKG ---
[address] [address] ELECTROCARDIOGRAM REPORT Name: ELIDIA PERALTA Room #: 353-P ADM IN M.R.#: [id number] ������������������ Admission: 10/05/18 ������������������ Attend Phys: Mandeep Riggs MD Discharge: ������������������ Date of : 49 Report #: [id number] ����������������������������������������������������������������� [id number] THIS REPORT FOR: //name// [facility] ED Test Date: 2018-10-05 Test Time: 13:50:43 Pat Name: ELIDIA PERALTA Department: Room: [facility] Gender: F Managing Consultant: KKODPAKO : 1945 Requested By: Mookie Dennison Order Number: [id number] MD: Nazario Jimenez Measurements Intervals [place] Rate: 110 P: 83 MA: 138 QRS: -66 QRSD: 93 T: 63 QT: 341 QTc: 462 Interpretive Statements Sinus tachycardia LAD, consider left anterior fascicular block Anterior infarct, old Compared to ECG 09/05/2018 20:12:45 Myocardial infarct finding now present Poor R-wave progression no longer present ST (T wave) deviation no longer present Electronically Signed On 10-05-2018 17:18:05 CDT by Nazario Jimenez [email or web address] ��������������������������������������������� <ELECTRONICALLY SIGNED> ���������������������������������������� By: Nazario Jimenez MD ��������������������������������������������� 10/05/18 1718 1350 1350 Nazario Jimenez MD /EPI
--- NOTE | 2018-10-05 17:53 | NUR ---
PATIENT ADMIT TO UNIT AT 1530 FROM ER. A/O X4. HAS HIGH LEVEL ANXIEY. PERFER ON 15L NBR. EVEN RN RT EXPLAINED TO PATIENT. PATIENT DENIES PAIN. STB ASSISTED TO BCS. WILL KEEP MONITOR.
[2018-10-05] MEDS ORDERED: NICOTINE TOP (18:15)
[2018-10-05 19:40] VITALS: BP 148/83
[2018-10-05] MEDS ORDERED: XALATAN2.5 ML OPHTHALMIC (20:03)
[2018-10-06 05:26] LABS: ABSOLUTE NEUTROPHILS 2.6 thou/uL (1.4-8.2); BASOPHILS 0.4 % (0.0-2.0); HEMATOCRIT 41.7 % (37.0-47.0); HEMOGLOBIN 13.7 gm/dL (12.0-15.0); LYMPHOCYTES 17.4 % (24.0-44.0); MCH 29.3 pg (26.0-34.0); MONOCYTES 3.6 % (1.0-8.0); PLATELET COUNT 298 thou/uL (150-400); POLYS 78.6 % (36.0-66.0); RBC 4.69 mil/uL (4.20-5.00); RDW 14.1 % (10.5-14.5); WBC 3.3 thou/uL (4.0-11.0)
[2018-10-06 05:37] VITALS: BP 142/59; BP 153/93
[2018-10-06 05:55] LABS: ALBUMIN 4.1 g/dL (3.4-5.0); CALCIUM 9.7 mg/dL (8.5-10.1); CREATININE 0.7 mg/dL (0.6-1.0); POTASSIUM 4.1 mmol/L (3.5-5.1); TOTAL BILIRUBIN 0.5 mg/dL (<0.1-1.0); TOTAL PROTEIN 7.6 g/dL (6.4-8.2)
--- NOTE | 2018-10-06 06:03 | NUR ---
PATIENT IS PROGRESSING SLOWLY IN HER CARE PLAN. VITAL SIGNS STABLE WITH PATIENT HAVING NPO COMPLAINTS OF PAIN OR NAUSEA. FULLY ORIENTED, PATIENT IS ABLE TO CALL APPROPRIATELY FOR NEEDS AND PARTICIPATE IN PLAN OF CARE. BREATHING STABLE OVERNIGHT ON FOUR LITERS NASAL CANNULA. PATIENT CAN BE HIGHLY ANXIOUS AT TIMES. ANXIETY MEDICATION PROVIDED TO GOOD AFFECT WITH PATIENT STATING THAT SHE "FEELS BETTER." PATIENT WAS ABLE TO AMBULATE TO BEDSIDE COMMODE MULTIPLE TIMES WITH ASSISTANCE INCIDENT FREE. CONTINUE PLAN OF CARE.
[2018-10-06 07:49] VITALS: BP 187/101
[2018-10-06 08:40] LABS: BE(vivo) 12.3 mmol/L (-2 to +3); HCO3 39.6 mmol/L (22.0-26.0); PCO2 62.1 mmHg (35.0-45.0); PO2 58.2 mmHg (80.0-100.0); pH 7.423 (7.360-7.450)
--- NOTE | 2018-10-06 10:28 | NUR ---
care of pt assumed this am @ ~0700. pt noted to be sleeping quietly and comfortably in bed while rn received report from noc rn. pt awakened in report and denied any concerns or requests at this time. pt later assessed and co soa so she requested to sit at the side of the bed to "catch my breath". pt w/ o2 @ 4lt nc on at this time, she states her baseline is 2-3lt per nc at home. pt noted her need to lean on and over something to help her breath better this am. pt denies a productive cough at this time. pt veralized recent weight loss, noted dietary consult w/ her today. pt noted to have many extra requests for her meals (ex extra sugars, butters, cream vs 2% milk etc). pt aware of her htn this am, and states she is taking htn medication which needs to be ordered as well as other home medications. pt verbalized "my daughter is suppose to be taking care of me, but is not doing a very good job". pt states her daughter does not live w/ her. pt had an abg this am, had to be stuck twice, that caused her great pain and stress, she states "they won't do that to me again". dr. blake at this am to see pt.
[2018-10-06 11:24] VITALS: BP 187/101
[2018-10-06 12:17] VITALS: BP 187/101
--- NOTE | 2018-10-06 12:21 | NUR ---
Case opened to follow for dc planning. Jai Alai Player visited with the pt at bedside. Her son Edinson was here briefly to visit. The pt asked for him to be added to the contact list to get information. Dtr Zina and son Anthony are her dpoa's for health care and finances. She will ask them to bring in a copy. She was sob during our conversation. She reports feeling very weak. She is legally blind. She was here a month ago and discharged to home with HH services per [facility]. She is still recieving their services and would like to have them [place]. HH options discussed and choice letter reveiwed. Pt unable to sign due to vision issues. [facility] notified of admission and can resume at [place]. The pt reports that she has home o2 with AHP and a rwalker. She has an 80 lbs dog "her baby" at home that she needs to be able to care for when she returns home. She reports that her dtr is taking care of him while she is here. She denies need for SNF at [place] and wants to return home with hh although she is concerned about weakness and recent weight loss. She reports her dtr is very involved and support. She helps with errands, shopping and meal prep. Jai Alai Player assisted the pt with her lunch setup. Support provided. Will ask for therapy orders and following for resumption of HH at [place].
[2018-10-06 16:05] VITALS: BP 121/65
[2018-10-06 19:33] VITALS: BP 110/71
[2018-10-07 03:43] VITALS: BP 130/87
--- NOTE | 2018-10-07 03:48 | NUR ---
ASSUMED CARE OF PT AT 1900. A&Ox4, ANXIOUS AT TIMES. O2 SAT WAS 87% ON 4L O2 AT EVENING VS. DAUGHTER AT BEDSIDE WAS VERY CONCERNED STATING AT HOME O2 SAT WAS IN 90'S AND UP TO 95 AT TIMES AND NEVER THAT LOW. HR WAS IN 120'S. SOLUMEDROL GIVEN, PRN BREATHING TX GIVEN. CONTACTED DR POTTS. HE ORDERED ABG. PT REFUSED, STATING LAST ABG'S HURT AND SHE DIDN'T WANT TO DO IT. WOULD ONLY DO PART OF HER BREATHING TX. STATED SHE WAS FINE. DAUGHTER CHANGED HER MIND ABOUT MORE TX'S AND ENCOURAGED PT TO DO WHAT SHE WANTED. MONITORED OVER NOC. O2 SAT WAS 90% ON 4L O2 ON LAST CHECK. HR 105-120 OVER NOC. AFEBRILE. NO COUGH. UP IN CHAIR AND BED. ATE SNACKS, 3 YOGURTS AND SOME CRACKERS. USED BSC TO VOID. PROGRESSING TOWARDS POC GOALS. WILL CONTINUE TO PROVIDE CARE AND MONITOR.
[2018-10-07 07:22] VITALS: BP 146/83
--- NOTE | 2018-10-07 12:21 | NUR ---
Assumed care of patient at 0700. Vitals have been stable, remains ST on telemetry, rates 100s-130s. Complaints of headache this morning, relieved with PRN Ibuprofen. PRN Xanax given as well with decrease in anxiety. Patient reports feeling somewhat better this morning, states her breathing has improved since admission. Titrated down to 3L NC this morning and maintaining oxygen saturations. Lungs are diminished and wheezy; non-productive cough. Patient refuses yellow socks, but agreeable to other fall precautions. Bed alarm in place and calls appropriately when needing assistance up. Up with SBA to commode. SOB with exertion. No BM since admission; prune juice given this morning, awaiting results. Passing gas. Okay to transfer to senior suites per Dr. Riggs this morning. Telemetry discontinued. Report called to Kat. Awaiting room assignment. Slowly progressing towards POC. Will continue to monitor.
--- NOTE | 2018-10-07 14:42 | NUR ---
KEVIN reviewed chart. Pt is slowly progressing towards goals for discharge home. Plan is for pt to return home and resume HH services with [facility]. SW faxed clinical info to [facility] and notified liaison. KEVIN is following to assist as needed with discharge planning.
[2018-10-07 20:00] VITALS: BP 128/79
--- NOTE | 2018-10-08 04:46 | NUR ---
PATIENT ALERT AND ORIENTED X4. BREATH SOUNDS HAVE WHEEZING IN UPPER LOBES AND DIMINISHED THROUGHOUT. RESP WERE 28, RAPID AND SHALLOW. INSTRUCTED PATIENT TO RELAX. XANAX WAS GIVEN. HR WAS ELEVATED ALSO TO 122. OTHER VS WERE STABLE. PATIENT UP TO BSC. DENIES PAIN. SLEPT MOST OF NIGHT. PATIENT LEGALLY BLIND.
--- NOTE | 2018-10-08 09:47 | NUR ---
Followup: Pt is now eating much better. States appetite is good and intake has been nearly 100%. 90% intake observed from breakfast tray this morning. States she loves the Ensure Puddings, 100% BID. No new wt to assess, requested updated wt. Moving to low nutrition risk.
[2018-10-08 10:28] VITALS: BP 137/76
--- NOTE | 2018-10-08 13:18 | NUR ---
SW reviewed chart and spoke with nursing. Pt is slowly progressing towards goals for discharge. Pt remains on IV steroids. No weekend discharge anticipated. SW updated [facility] liaison. Discharge plan is for pt to return home and resume HH services with [facility]. Contact info for [facility] place in pt's discharge summary in case of weekend discharge. Final discharge orders/summary will need to be faxed when available. KEVIN is following to assist as needed with discharge planning. [facility]--
--- NOTE | 2018-10-08 15:43 | NUR ---
ASSUMED CARE AT 0700, SHIFT ASSESSMENT DONE, MEDS GIVEN, VSS. DENIES ANY PAIN, NAUSEA, VOMITING. RECEIVED ONE DOSE OF LASIX AND ALBUMIN THIS AM. REMAINS ON 3L NC. WILL CONTINUE TO ASSESS AND ASSIST WITH ADLs NEEDED.
[2018-10-08 19:40] VITALS: BP 156/85
--- NOTE | 2018-10-09 05:08 | NUR ---
PATIENT ALERT AND ORIENTED X4. UP TO BSC WITH ONE ASSIST. 02NC 3L. LUNGS COARSE. RT TREATMENTS PER ORDER. EDEMA 3+ TO LOWER LEGS, ENCOURAGED TO KEEP LEGS UP IN THE BED. COOPERATIVE WITH CARE. DENIES PAIN. MEDICATED FOR ANXIETY. RESTING QUIETLY THROUGHOUT THE NIGHT. WILL MONITOR.
[2018-10-09 07:30] VITALS: BP 149/87
--- NOTE | 2018-10-09 08:53 | NUR ---
PATIENT CARE WAS ASSUMED AT 0715.PATIENT IS ALERT AND ORIENTED X4.PT HAS SOB WITH ACTIVITY.PT HAS NO COMPLAINS OF PAIN AT THIS TIME.RT TREATMENTS ARE IN PLACE.FALL PRECAUTIONS ARE IN PLACE.PT USES BSC DUE TO SOB, WITH STANDBY ASSIST.PT HAS CALL LIGHT,PHONE, AND PERSONAL BELONGIGS WITHIN REACH.
[2018-10-09 09:26] LABS: CREATININE 0.7 mg/dL (0.6-1.0); POTASSIUM 3.6 mmol/L (3.5-5.1)
[2018-10-09 19:27] VITALS: BP 158/90
--- NOTE | 2018-10-10 05:17 | NUR ---
PATIENT ALERT AND ORIENTED X4. UP TO BSC. 02NC 3L. SOME SOA NOTED WITH EXERTION. C/O ANXIETY AND MEDICATED WITH GOOD RESULTS. LOTION PLACED ON BILATERAL FEET DUE TO SCALY SKIN WITH GOOD RELIEF. DENIES PAIN. SALINE LOCK PATENT FOR FLUSH. REFUSES CPAP AT NIGHT. RT TX PER ORDER. RESTING QUIETLY AT TIME OF NOTE. WILL MONITOR.
[2018-10-10 07:59] VITALS: BP 138/90
--- NOTE | 2018-10-10 18:06 | NUR ---
ASUMED CARE OF PATIENT AT 0715, PATIENT ALERT AND ORIENTED X 4. UP WITH ASSIST WITH WALKER IF AMBULATING TO THE BATHROOM, SHE IS UP TO [facility]DEP[facility]. PATIENT DENIED PAIN THIS AM, BUT C/O PAIN THIS EVENING, MOTRIN 800MG 1 TABLETS GIVEN. PATIENT HAS LEFT FOREARM IV IN PLACE, FLUSHED WITH NS AND REMAINS PATENT. PATIENT C/O ANXIETY THIS AM, XANAX 0.5MG 1 TABLET GIVEN. PATIENT C/O DIZZINESS AND NAUSEA, THIS RN CALLED DR POTTS, RECEIVED ORDER FOR ANTIVERT 25MG EVERY 8HR/PRN FOR DIZZINESS AND ZOFRAN 4 MG IV EVERY 4 HOURS/PRN NAUSEA. BOTH MEDICATIONS GIVEN, PATIENT TOOK A NAP AND FEELS BETTER. PATIENT REFUSED BED CHANGE, WAS WAITING ON HER DAUGHTER TO HELP HER SHOWER AND REFUSED UNTIL THE AM. PATIENT HAS 02 AT 3 LITERS/NC AND RECEIVES BREATHING TREATMENTS SCHEDULED. WILL CONTINUE TO MONITOR.
[2018-10-10 20:05] VITALS: BP 116/57
--- NOTE | 2018-10-11 04:05 | NUR ---
PATIENT ALERT AND ORIENTED X4. DROWSY THIS EVENING. SLEEPING AFTER TAKING ROUTINE MEDICATION. 02NC AT 3L. UP TO BSC TO VOID. SLEPT THROUGHOUT THE NIGHT. REFUSED CPAP. NO C/O NAUSEA, DIZZINESS OR PAIN. WILL MONITOR.
[2018-10-11 08:12] VITALS: BP 136/83
[2018-10-11] MEDS ORDERED: PREDNISONE 10 M10 MG PO (10:49)
--- NOTE | 2018-10-11 11:51 | NUR ---
DISCHARGE NOTE: SW reviewed chart and spoke with nursing. Pt is medically stable for discharge home today and has orders to resume HH services through [facility]. SW faxed discharge orders/summary to [facility] and notified liaison. SW met with pt at bedside to discuss discharge plan. Pt is aware and agreeable with plan. [employer] V[employer] letter on chart. Pt states her family will provide transportation home. Contact info for [facility] placed in pt's discharge summary. No additional SW needs identified at this time, but is available to assist should needs arise.
--- NOTE | 2018-10-11 18:36 | NUR ---
ASSUMED CARE OF PATIENT AT 0715, PATIENT ALERT AND ORIENTED X 4. PATIENT DENIES PAIN THIS SHIFT. PATIENT HAS O2 AT 3 LITERS/NC. DR POTTS HERE THIS AM, PATIENT WILL DISCHARGE TO HOME WITH HOMEHEALTH. DR MARTINEZ SAW THE PATIENT, PATIENT REFUSED HEPARIN. DAUGHTER HERE TO TRANSPORT PATIENT HOME. ALL DISCHARGE PAPERWORK AND ALL PERSONAL BELONGINGS SENT WITH THE PATIENT. LEFT FOREARM IV REMOVED PRIOR TO DISCHARGE.
== END 2018-10-11 18:47 | disposition home health service (06) | DRG 189 ==
LOC: ER 13:29 → 3W 14:49 → EROBS 14:49 → 3W 15:26 → SICU 10-07 15:31
PROVIDERS: Emergency Medicine; Pediatrics; ADMIT Family Medicine
DX: J96.21 Acute and chronic respiratory failure with hypoxia (principal); E43 Unspecified severe protein-calorie malnutrition; J44.1 Chronic obstructive pulmonary disease with (acute) exacerbation; Z68.1 Body mass index [BMI] 19.9 or less, adult; M19.90 Unspecified osteoarthritis, unspecified site; I10 Essential (primary) hypertension; K58.9 Irritable bowel syndrome, unspecified; F41.9 Anxiety disorder, unspecified; J96.22 Acute and chronic respiratory failure with hypercapnia; I27.20 Pulmonary hypertension, unspecified; K21.9 Gastro-esophageal reflux disease without esophagitis; M81.0 Age-related osteoporosis without current pathological fracture; H40.9 Unspecified glaucoma; H35.30 Unspecified macular degeneration; Z88.8 Allergy status to other drugs, medicaments and biological substances; Z90.49 Acquired absence of other specified parts of digestive tract; Z99.81 Dependence on supplemental oxygen; Z82.49 Family history of ischemic heart disease and other diseases of the circulatory system; Z80.9 Family history of malignant neoplasm, unspecified; Z83.6 Family history of other diseases of the respiratory system; Z87.891 Personal history of nicotine dependence
CPT/HCPCS: 10879; 15002

== ENCOUNTER 2018-11-04 13:55 | Inpatient (IN) | payer OTHER ==
[~2018-11-04] VITALS: Ht 152.4 cm; Wt 44.9 kg
[~2018-11-04 13:55] MED LIST changes: +NICOTINE TOP; +XALATAN2.5 ML OPHTHALMIC
[2018-11-04 14:55] LABS: ABSOLUTE NEUTROPHILS 6.4 thou/uL (1.4-8.2); BASOPHILS 0.6 % (0.0-2.0); EOSINOPHILS 0.4 % (0.0-3.0); HEMATOCRIT 36.6 % (37.0-47.0); HEMOGLOBIN 12.6 gm/dL (12.0-15.0); LYMPHOCYTES 7.2 % (24.0-44.0); MCH 29.7 pg (26.0-34.0); MCHC 34.5 g/dL (28.0-37.0); MCV 86.1 fL (80.0-100.0); MONOCYTES 6.9 % (1.0-8.0); PLATELET COUNT 358 thou/uL (150-400); POLYS 84.9 % (36.0-66.0); RBC 4.25 mil/uL (4.20-5.00); RDW 14.3 % (10.5-14.5); WBC 7.5 thou/uL (4.0-11.0)
[2018-11-04 15:10] LABS: ALBUMIN 3.6 g/dL (3.4-5.0); ANION GAP < 0 mmol/L (7-16); BUN 9 mg/dL (7-18); CALCIUM 9.5 mg/dL (8.5-10.1); CHLORIDE 78 mmol/L (98-107); CREATININE 0.5 mg/dL (0.6-1.0); GLUCOSE 134 mg/dL (74-106); SGOT 20 U/L (15-37); SGPT 18 U/L (30-65); SODIUM 120 mmol/L (136-145); TOTAL BILIRUBIN 0.8 mg/dL (<0.1-1.0); TOTAL PROTEIN 6.8 g/dL (6.4-8.2)
[2018-11-04 15:13] LABS: CO2 45 mmol/L (21-32); POTASSIUM 2.9 mmol/L (3.5-5.1)
[2018-11-04 15:33] LABS: BE(vivo) 13.7 mmol/L (-2 to +3); HCO3 41.6 mmol/L (22.0-26.0); PCO2 68.7 mmHg (35.0-45.0); PO2 72.4 mmHg (80.0-100.0)
[2018-11-04] MEDS ORDERED: ALPHAGAN P5 ML OPHTHALMIC (15:37)
[2018-11-04] MEDS ORDERED: LASIX 40 MG TAB40 M2 PO (15:41)
[2018-11-04] MEDS ORDERED: ROBAXIN 750 MG750 M1 PO (15:42)
[2018-11-04] MEDS ORDERED: IPRATROPIU0.2 MG/1 M INH (15:44)
[2018-11-04] MEDS ORDERED: SPIRIVA INH (15:44)
[2018-11-04] MEDS ORDERED: XANAX 0.5 MG0.5 MG PO (15:45)
[2018-11-04] MEDS ORDERED: IRBESARTAN-HCT1 EACH PO (15:45)
[2018-11-04] MEDS ORDERED: SYMBICORT160 MCG/4. INH (15:46)
[2018-11-04] MEDS ORDERED: ZANTAC 150MG T150 MG PO (15:46)
[2018-11-04 17:59] VITALS: BP 143/84
[2018-11-04 18:52] VITALS: BP 160/88
[2018-11-04 19:59] VITALS: BP 144/83
--- NOTE | 2018-11-05 03:49 | NUR ---
ASSESSMENT: PT REMAIN ALERT AND ORIENT TIMES THREE. C/O SOB, RT TX GIVEN WITH GOOD RESULTS. DENIES PAIN, DID C/O SLIGHT MASTERS BUT STATE THAT IT WAS OK. SLEPT GOOD AFTER PRN XANAX. SON WAS AT THE BEDSIDE FOR A SHORT TIME. ST PER MONITOR. TOLERATING PO INTAKE. UO ADEQUATE AMTS PER SHIFT. SALINE LOCKED POST NS WITH 20K. 02 AT 4 LITERS, USES 3 LITERS AT HOME. SKIN DRY WITH PREDISONE LOOK. SLOW PROGRESS TOWARDS DC GOALS., WILL CONTINUE TO MONITOR.
[2018-11-05 04:17] VITALS: BP 139/82
[2018-11-05 05:33] LABS: CALCIUM 9.4 mg/dL (8.5-10.1); CREATININE 0.5 mg/dL (0.6-1.0); POTASSIUM 4.3 mmol/L (3.5-5.1)
[2018-11-05 07:28] VITALS: BP 123/72
--- NOTE | 2018-11-05 09:29 | EKG ---
[address] [place] [address] ELECTROCARDIOGRAM REPORT Name: ELIDIA PERALTA Room #: 353-P ADM IN M.R.#: [id number] ������������������ Admission: 11/04/18 ������������������ Attend Phys: Mandeep Riggs MD Discharge: ������������������ Date of : 49 Report #: [id number] ����������������������������������������������������������������� [id number] THIS REPORT FOR: //name// [facility] ED Test Date: 2018-11-04 Test Time: 15:12:11 Pat Name: ELIDIA PERALTA Department: Room: [facility] Gender: F Data Software Engineer: JOHN : 1945 Requested By: Nathaly Owen Order Number: [id number] MD: Esau Bauman Measurements Intervals [place] Rate: 108 P: 79 VT: 146 QRS: -49 QRSD: 99 T: 69 QT: 320 QTc: 429 Interpretive Statements Sinus tachycardia Inferior infarct, age indeterminate Anteroseptal infarct, old Baseline wander in lead(s) V5 Compared to ECG 10/05/2018 13:50:43 Inferior Q waves are more prominent Electronically Signed On 11-05-2018 9:29:25 CDT by Esau Bauman [email or web address] ��������������������������������������������� <ELECTRONICALLY SIGNED> ���������������������������������������� By: Esau Bauman MD, [facility] ��������������������������������������������� 11/05/18 0929 1512 1512 Esau Bauman MD, [facility] /EPI
--- NOTE | 2018-11-05 10:55 | NUR ---
ASSUMED PATIENT CARE AT 0715. A&OX4. NO COMPLAINTS OF PAIN. PATIENT FEELING LESS WEAK THAN YESTERDAY. ON 4L NC. WEARS 3L NC AT HOME. PATIENT IRRITATED ABOUT GOING DOWN FOR A CHEST X-RAY. NURSE EXPLAINED THAT IF THEY USED A PORTABLE MACHINE THEY COULD ONLY GET ONE VIEW AND MULTIPLE VIEWS WERE ORDERED. PATIENT AGREEABLE TO GO DOWN. PATIENT ANXIOUS UPON RETURN TO FLOOR. XANAX ORDERED FOR ANXIETY. PATIENT WORRIED ABOUT DOG AT HOME. PATIENT WORKING TOWARDS GOALS.
[2018-11-05 11:56] VITALS: BP 115/71
[2018-11-05 13:37] VITALS: BP 115/71
--- NOTE | 2018-11-05 13:57 | NUR ---
INITIAL ASSESSMENT: KEVIN reviewed chart and spoke with nursing and attending physician. Pt was admitted from home due to dehydration. Pt with hx of COPD. Pt was recently discharge home with HH services on 10/11/18. KEVIN met with pt at bedside. Introduced role of SW. Pt is alert/orientated x 4. Pt is legally blind. Pt reports she lives at home alone. Prior to admission, pt was using a walker and has home O2 in place through [facility]. Normally, pt is on 3L of continuous O2. Pt is currently on service with [facility]. Pt has been to [facility] in the past. Plan is for pt to discharge home and resume HH services. KEVIN faxed clinical info to [facility] and notified liaison. KEVIN spoke with Cristóbal RN with HH, who states that pt may need to consider a higher level of care in the near future, due to her vision deficits. Pt has family support, but not 24 hour care. KEVIN updated attending physician. Should pt be ready for discharge home over the weekend, final discharge orders and summary will need to be faxed to [facility]. Contact info for HH placed in pt's discharge summary. KEVIN is following to assist as needed with discharge planning. [facility]--
[2018-11-05 15:33] VITALS: BP 141/82
[2018-11-05 19:58] VITALS: BP 153/94
--- NOTE | 2018-11-06 03:18 | NUR ---
PATIENT IS ALERT AND ORIENTED. PATIENT IS SBA TO THE BSC. PATIENT IS ON 4LNC. PATEINT IS WEARING MASK TO SLEEP AT HS DUE TO MOUTH BREATHING PATIENT IS SUPPOSED TO WEAR C PAP HS BUT REFUSES. PATIENT CAN BE ANXIOUS. PATIENT DENIES PAIN. PATIENT IS NSR TO ST ON TELE. PATIENT LIVES AT HOME ALONE. PATIENT IS RESTING COMFORTABLY IN BED. WCM. PATIENT IS PROGRESSING TO GOALS
[2018-11-06 04:56] VITALS: BP 177/111
[2018-11-06 06:26] LABS: CALCIUM 9.2 mg/dL (8.5-10.1); CREATININE 0.5 mg/dL (0.6-1.0); POTASSIUM 4.2 mmol/L (3.5-5.1)
[2018-11-06 07:26] VITALS: BP 146/88
--- NOTE | 2018-11-06 14:02 | NUR ---
ASSUMED PATIENT CARE AT 0715. A&OX4. COMPLAINTS OF A HEADACHE IN THE MORNING. IBUPROFEN ORDERED. DR. POTTS WANTING TO SEND PATIENT TO [facility] TODAY BUT THE PATIENT NEEDS THREE MIDNIGHTS. PATIENT MAY GO TOMORROW IF BED AVAILABLE. PATIENT VERY TEARFUL TODAY DUE TO PERSONAL FAMILY ISSUE. STAND BY ASSIST. WORKING TOWARDS GOALS.
[2018-11-06 16:07] VITALS: BP 155/93
[2018-11-06 19:26] VITALS: BP 157/87
--- NOTE | 2018-11-06 22:00 | NUR ---
MACHINE OPERATOR CANE CUTTER ACTIVATED FOR C/O CP. UPON ASSESSMENT, PT ANXIOUS AND MILD SOA NOTED. LABS AND EKG OBTAINED. MD CALLED WITH ORDERS RECEIVED. SHORTLY AFTER FIRST SL NITRO GIVEN, PT STATED SHE IS JUST HAVING AN ANXIETY ATTACK DUE TO THE ANNIVERSARY OF HER GRANDDAUGHTER'S MURDER. SEE RAPID RESPONSE INTERVENTION FOR FURTHER DOCUMENTATION.
[2018-11-07 04:50] VITALS: BP 152/91
[2018-11-07 07:05] VITALS: BP 150/85
--- NOTE | 2018-11-07 08:29 | NUR ---
PATIENT IS SLOWLY PROGRESSING IN HER CARE PLAN. VITAL SIGNS MOSTLY STABLE WITH NURSE NOTING SUSTAINED TACHYCARDIA ON PATIENT EARLY IN SHIFT. PATIENT COMPLAINED OF SUB STERNAL CHEST PAIN WHICH CAUSED NURSE TO INITIATE RAPID RESPONSE ON PATIENT. ORDERS RECEIVED FOR STAT EKG WITH CT OF CHEST TO RULE OUT PE. BOTH DIAGNOSTIC PROCEDURES CAME BACK NEGATIVE FOR PE/PA. PATIENT REMAINED ALERT AND ORIENTED DURING SHIFT BU WAS HIGHLY ANXIOUS THROUGHOUT. PATIENT DID HAVE COMPLAINTS OF CHEST PAIN EARLY IN SHIFT WHICH RESOLVED SHORTLY AFTER RAPID RESPONSE. UP MULTIPLE TIMES TO BEDSIDE COMMODE WITH ASSISTANCE INCIDENT FREE. PATIENT DID STATE TO NURSE THAT A TWENTY DOLLAR BILL WAS MISSING FROM [employer] FOLLOWING DAUGHTER TAKING IT HOME FROM HOSPITAL, AND IT IS PATIENTS BELIEF THAT IT WAS TAKEN FROM HER DURING HER STAY HERE. NURSE NOTIFIED ELIGIBILITY CONSULTANT AND FILED AN INCIDENT REPORT. CONTINUE PLAN OF CARE.
--- NOTE | 2018-11-07 15:04 | NUR ---
ASSUMED PATIENT CARE AT 0715. A&OX4. NO COMPLAINTS OF PAIN. PATIENT WAS EXTREMELY ANXIOUS OVERNIGHT. DR. POTTS ORDERED AN EXTRA DOSE OF ANXIETY MEDICATION FOR PATIENT. PATIENT SLEPT MOST OF THE MORNING. UP TO CHAIR FOR LUNCH. PATIENTS HEART RATE STILL ELEVATED IN THE 120'S, CTA NEGATIVE FOR PE. PATIENT SLOWLY PROGRESSING TOWARDS GOALS. PLAN IS TO DISCHARGE TO [facility] TOMORROW.
[2018-11-07 15:27] VITALS: BP 119/62
[2018-11-07 20:00] VITALS: BP 105/52
[2018-11-08 04:00] VITALS: BP 121/54
[2018-11-08 07:20] VITALS: BP 133/75
[2018-11-08 07:55] VITALS: BP 145/75
--- NOTE | 2018-11-08 07:55 | NUR ---
PATIENT IS PROGRESSING SLOWLY IN HER CARE PLAN. VITAL SIGNS STABLE WITH PATIENT HAVING NO COMPLAINTS OF NAUSEA. PATIENT DID COMPLAIN OF PAIN IN FORM OF HEADACHE WHICH WAS TREATED BY MEDICATION AND NON PHARMACOLOGICAL INTERVENTION. FULLY ORIENTED, PATIENT IS ABLE TO CALL FOR REQUESTS. NURSE HAS NOTED MARKED ANXIETY IN PATIENT BUT HAS BEEN UNABLE TO TREAT IT THROUGH MEDICATION DUE TO PATIENT REFUSAL. PATIENT IS UPSET WITH MEDICAL STAFF OVER PRN MEDICATION GIVEN TO HER YESTERDAY DURING RAPID RESPONSE, AND SAYS THAT SHE "DOESN'T FEEL GOOD". BREATHING STABLE ON OXYGEN EVIDENCED BY SPOT OXYGENATION CHECKS. PATIENT HAS BEEN UP TO BEDSIDE COMMODE MULTIPLE TIMES WITH ASSISTANCE INCIDENT FREE. CONTINUE PLAN OF CARE.
--- NOTE | 2018-11-08 08:41 | EKG ---
[address] [address] ELECTROCARDIOGRAM REPORT Name: ELIDIA PERALTA Room #: 353-P ADM IN M.R.#: [id number] ������������������ Admission: 11/04/18 ������������������ Attend Phys: Mandeep Riggs MD Discharge: ������������������ Date of : 49 Report #: [id number] ����������������������������������������������������������������� [id number] THIS REPORT FOR: //name// [facility] Test Date: 2018-11-06 Test Time: 20:14:17 Pat Name: ELIDIA PERALTA Department: Room: 353 Gender: F Senior Biostatistician/Group Leader: rachel : 1945 Requested By: Mandeep Riggs Order Number: [id number] MD: Naazrio Jimenez Measurements Intervals [place] Rate: 126 P: 73 CT: 137 QRS: -44 QRSD: 91 T: 62 QT: 297 QTc: 430 Interpretive Statements Sinus tachycardia Left atrial enlargement Left axis deviation RSR' in V1 or V2, probably normal variant Abnormal inferior Q waves Consider anterior infarct Compared to ECG 11/04/2018 15:12:11 Electronically Signed On 11-08-2018 8:41:15 CDT by Nazario Jimenez [email or web address] ��������������������������������������������� <ELECTRONICALLY SIGNED> ���������������������������������������� By: Nazario Jimenez MD ��������������������������������������������� 11/08/18 0841 13 13 Nazario Jimenez MD /EPI
--- NOTE | 2018-11-08 10:44 | NUR ---
DISCHARGE NOTE: KEVIN reviewed chart and spoke with nursing and attending physician. Pt is medically stable for discharge today. Recommendation made for pt to go to post-acute care. KEVIN met with pt at bedside to discuss discharge plan. Options discussed. Pt agreeable with referral to [facility]. KEVIN faxed clinical info and discharge orders/summary for review. [facility] does have a bed for pt today. Awaiting transportation time. Pt's PCP to follow her at [facility]. Chart copy ordered. Nursing to call report. KEVIN updated [facility] lia[facility]. KEVIN is following to finalize discharge.
[2018-11-08 11:18] VITALS: BP 122/63
--- NOTE | 2018-11-08 11:30 | NUR ---
DP let Reese/nurse 3w know that the patient will be picked up to go to [facility] today at 1300. Also gave him the number to call report [phone]
--- NOTE | 2018-11-08 15:29 | NUR ---
ASsumed care of PT at 0700. PT AOx4 in no acute distress. >92% spo2 on 4L NC. wheezy to auscultation. voicing no complaints. vitals stable. anticipate d/c to [facility] at approx 1600. sinus on telemetry.
== END 2018-11-08 17:34 | DRG 683 ==
LOC: ER 13:55 → EROBS 16:29 → 3W 16:29
PROVIDERS: Emergency Medicine; Nurse Practitioner Family; ADMIT Family Medicine
DX: N17.9 Acute kidney failure, unspecified (principal); E87.1 Hypo-osmolality and hyponatremia; J44.1 Chronic obstructive pulmonary disease with (acute) exacerbation; H33.20 Serous retinal detachment, unspecified eye; I10 Essential (primary) hypertension; Z96.1 Presence of intraocular lens; H40.9 Unspecified glaucoma; F41.9 Anxiety disorder, unspecified; H35.30 Unspecified macular degeneration; E89.0 Postprocedural hypothyroidism; K21.9 Gastro-esophageal reflux disease without esophagitis; E86.0 Dehydration; E87.6 Hypokalemia; M81.0 Age-related osteoporosis without current pathological fracture; Z87.891 Personal history of nicotine dependence; Z90.49 Acquired absence of other specified parts of digestive tract; Z98.42 Cataract extraction status, left eye; Z98.41 Cataract extraction status, right eye; Z79.899 Other long term (current) drug therapy; Z88.8 Allergy status to other drugs, medicaments and biological substances; Z80.8 Family history of malignant neoplasm of other organs or systems; Z82.5 Family history of asthma and other chronic lower respiratory diseases; Z82.49 Family history of ischemic heart disease and other diseases of the circulatory system
CPT/HCPCS: 10879

== ENCOUNTER 2018-12-13 14:01 | Inpatient (IN) | payer OTHER ==
[~2018-12-13] VITALS: Ht 152.4 cm; Wt 51.1 kg
[~2018-12-13 14:01] MED LIST changes: +ALPHAGAN P5 ML OPHTHALMIC; +IRBESARTAN-HCT1 EACH PO; +LASIX 40 MG TAB40 M2 PO; +SYMBICORT160 MCG/4. INH; +XANAX 0.5 MG0.5 MG PO; +ZANTAC 150MG T150 MG PO
[2018-12-13 14:02] VITALS: BP 108/58
[2018-12-13 14:42] LABS: ABSOLUTE NEUTROPHILS 7.6 thou/uL (1.4-8.2); BASOPHILS 0.6 % (0.0-2.0); EOSINOPHILS 0.2 % (0.0-3.0); HEMATOCRIT 39.1 % (37.0-47.0); LYMPHOCYTES 10.7 % (24.0-44.0); MCH 29.3 pg (26.0-34.0); MCHC 33.1 g/dL (28.0-37.0); MCV 88.4 fL (80.0-100.0); MONOCYTES 6.9 % (1.0-8.0); PLATELET COUNT 316 thou/uL (150-400); POLYS 81.6 % (36.0-66.0); RBC 4.43 mil/uL (4.20-5.00); RDW 14.5 % (10.5-14.5); WBC 9.3 thou/uL (4.0-11.0)
[2018-12-13 14:46] LABS: BUN 11 mg/dL (7-18); CALCIUM 9.3 mg/dL (8.5-10.1); CHLORIDE 82 mmol/L (98-107); CREATININE 0.7 mg/dL (0.6-1.0); GLUCOSE 102 mg/dL (74-106); POTASSIUM 3.4 mmol/L (3.5-5.1); SODIUM 130 mmol/L (136-145)
[2018-12-13 14:52] LABS: CO2 > 45 mmol/L (21-32)
[2018-12-13 14:55] LABS: TROPONIN-I 0.11 ng/mL (<0.06)
[2018-12-13 15:00] LABS: BE(vivo) 22.3 mmol/L (-2 to +3); HCO3 53.4 mmol/L (22.0-26.0); PCO2 97.2 mmHg (35.0-45.0); PO2 101.1 mmHg (80.0-100.0); pH 7.358 (7.360-7.450); sO2 96.9 % (92.0-98.0)
[2018-12-13 17:23] VITALS: BP 115/68
[2018-12-13 17:29] VITALS: BP 129/74
[2018-12-13 18:15] VITALS: BP 134/71
[2018-12-13 20:15] VITALS: BP 144/85
[2018-12-14 03:54] LABS: BUN 15 mg/dL (7-18); CHLORIDE 82 mmol/L (98-107); CREATININE 0.6 mg/dL (0.6-1.0); GLUCOSE 107 mg/dL (74-106); POTASSIUM 3.3 mmol/L (3.5-5.1); SODIUM 131 mmol/L (136-145)
[2018-12-14 03:55] LABS: HEMATOCRIT 36.8 % (37.0-47.0); HEMOGLOBIN 12.3 gm/dL (12.0-15.0); MCH 29.6 pg (26.0-34.0); MCHC 33.6 g/dL (28.0-37.0); MCV 88.2 fL (80.0-100.0); RBC 4.17 mil/uL (4.20-5.00); RDW 14.3 % (10.5-14.5); WBC 4.2 thou/uL (4.0-11.0)
[2018-12-14 03:56] LABS: CO2 > 45 mmol/L (21-32)
[2018-12-14 04:57] VITALS: BP 126/64
--- NOTE | 2018-12-14 05:43 | NUR ---
ASSUME CARE 1900. PT/VITALS STABLE. DENIES ANY PAIN. MODERATELY TOLERATES ACTIVITY. ASSESSMENT AAS CHARTED. SLOWLY PROGRESSING WITH POC. PLAN IS TO TREAT EXACERBATION WITH STEROIDS AND ABX. ADEQUATE REST NOTED THROUGH THE NIGHT. SR/ST NOTED ON MONITOR. WILL CONTINUE TO MONITOR AND FOLLOW WITH POC
[2018-12-14 07:00] VITALS: BP 111/63
--- NOTE | 2018-12-14 11:00 | 2DMMODE ---
[facility] [place] [address] [address] 2 D/M-MODE ECHOCARDIOGRAM Name: ELIDIA PERALTA Room #: 207-P [facility] IN M.R.#: [id number] ������������� Admission: 12/13/18 ������������� Attend Phys: Mandeep Riggs, Discharge: ��� ������������� ��� Date of : 49 Date of Service: 12/14/18 1100 �� Report #: [id number] �������� ��������������������������������������������[id number] THIS REPORT FOR: //name// APPROVED REPORT Study performed: 12/14/2018 09:54:34 EXAM: Comprehensive 2D, Doppler, and color-flow Echocardiogram Patient Location: Bedside Room #: [facility] Status: routine BSA: 1.42 HR: 125 bpm BP: 126/64 mmHg Rhythm: Tachycardia Other Information Study Quality: Adequate/sitting up in bed. Indications Dyspnea Edema. Hx: COPD, HTN. 2D Dimensions RVDd: 35.35 mm IVSd: 12.00 (7-11mm) LVOT Diam: 19.67 (18-24mm) LVDd: 34.00 mm PWd: 12.00 (7-11mm) LVDs: 20.62 (25-40mm) Aortic Root: 30.49 mm Volumes Left Atrial Volume (Systole) Single Plane 4CH: 43.25 mL Single Plane 2CH: 45.21 mL LA ESV Index: 34.00 mL/m2 Aortic Valve AoV Peak Jerrell.: 1.87 m/s AO Peak Gr.: 14.00 mmHg LVOT Max P.38 mmHg LVOT Max V: 1.61 m/s GREG Vmax: 2.62 cm2 Pulmonary Valve PV Peak Jerrell.: 1.40 m/s PV Peak Gr.: 7.80 mmHg [facility] [address] [place] [address] 2 D/M-MODE ECHOCARDIOGRAM Name: ELIDIA PERALTA Room #: 207-P [facility] IN [facility].#: [id number] ������������� Admission: 12/13/18 ������������� Attend Phys: Mandeep Riggs, Discharge: ��� ������������� ��� Date of : 49 Date of Service: 12/14/18 1100 �� Report #: [id number] �������� ��������������������������������������������[id number] Tricuspid Valve TR Peak Jerrell.: 2.82 m/s RAP Estimate: 5.00 mmHg TR Peak Gr.: 31.87 mmHg PA Pressure: 37.00 mmHg Left Ventricle The left ventricle is normal size. There is normal LV segmental wall motion. Mild concentric left ventricular hypertrophy. Left ventricular systolic function is hyperdynamic. LVEF is 70%. This study is not technically sufficient to allow evaluation of the LV diastolic function. Right Ventricle The right ventricle is normal size. The right ventricular systolic function is normal. Atria Left atrium is at the upper limits of normal. The right atrium size is normal. Aortic Valve The aortic valve is normal in structure. No aortic regurgitation is present. There is no aortic valvular stenosis. Mitral Valve The mitral valve is normal in structure. There is no mitral valve regurgitation noted. Tricuspid Valve The tricuspid valve is normal in structure. Trace tricuspid regurgitation. Estimated PAP is 35-40mmHg. Pulmonic Valve Pulmonic valve is not well visualized. Great Vessels The aortic root is normal in size. IVC is normal in size and collapses >50% with inspiration. Pericardium There is no pericardial effusion. <Conclusion> Left ventricular systolic function is hyperdynamic. There is normal LV segmental wall motion. LVEF is 70%. [facility] [place] [address] 2 D/M-MODE ECHOCARDIOGRAM Name: TRUDY PERALTASebas Vaughn Room #: 207-P [facility] IN M.R.#: [id number] ������������� Admission: 12/13/18 ������������� Attend Phys: Mandeep Riggs, Discharge: ��� ������������� ��� Date of : 49 Date of Service: 12/14/18 1100 �� Report #: [id number] �������� ��������������������������������������������[id number] The aortic valve is normal in structure. No aortic regurgitation or stenosis. The mitral valve is normal in structure. No mitral valve regurgitation Trace tricuspid regurgitation. Estimated pulmonary artery pressure of 35-40mmHg. There is no pericardial effusion. ��������������������������������������������� <ELECTRONICALLY SIGNED> ���������������������������������������� By: Esau Bauman MD, [facility] ��������������������������������������������� 12/14/18 1100 1100 1100 Esau Bauman MD, FACC /INF
[2018-12-14 12:00] VITALS: BP 101/55
[2018-12-14 16:00] VITALS: BP 162/98
--- NOTE | 2018-12-14 16:16 | EKG ---
[place] [address] [address] [facility] [place] [address] [place] [address] ELECTROCARDIOGRAM REPORT Name: ELIDIA PERALTA Room #: 207-P ADM IN M.R.#: [id number] ������������������ Admission: 12/13/18 ������������������ Attend Phys: Mandeep Riggs MD Discharge: ������������������ Date of : 49 Report #: [id number] ����������������������������������������������������������������� [id number] THIS REPORT FOR: //name// [facility] ED Test Date: 2018-12-13 Test Time: 14:17:55 Pat Name: ELIDIA PERALTA Department: Room: 207 Gender: F Stamping Operator: ISHA : 1945 Requested By: Mily Wood Order Number: [id number] MD: Esau Bauman Measurements Intervals [place] Rate: 106 P: 74 FL: 128 QRS: -52 QRSD: 89 T: 60 QT: 346 QTc: 460 Interpretive Statements Sinus tachycardia Biatrial enlargement Inferior infarct, old Anterior infarct, old Compared to ECG 11/06/2018 20:14:17 No significant change was found Electronically Signed On 12-14-2018 16:15:56 CDT by Esau Bauman [email or web address] ��������������������������������������������� <ELECTRONICALLY SIGNED> ���������������������������������������� By: Esau Bauman MD, [facility] ��������������������������������������������� 12/14/18 1615 1417 1417 Esau Bauman MD, [facility] /EPI
--- NOTE | 2018-12-14 17:08 | NUR ---
met with patient admits with copd exacerbation. She resides at home alone. She has 3 steps inside to her computer. She uses a walker in home. She has home oxygen via [facility] at 3 liters. She has [facility] as they have RT. She has a recent dc from [facility] to [facility] then home with HH. Discussed therapy and patient does not feel she can participate at this time. [facility] called and can no longer accept patient for return for their services with recommendation of hospice. Patient upset due to hospitalization and taking prednisone. At this time have not infomred her her HH agency is not accepting for her return. [email or web address] following for dc planning
--- NOTE | 2018-12-14 17:33 | NUR ---
ASSUMED CARE AT SHIFT CHANGE, ALERT AND ORIENTED X4. SLEPT ON AND OFF THROUGHT OUT THE DAY. DENIES ANY CP OR DISCOMFORT. REMAINS SOB AND TACHYCARDIC WHEN AMBULATING. SR-ST ON THE MONITOR AND VSS. AFEBRILE AND WILL CONTINEU WITH POC.
[2018-12-14 20:12] VITALS: BP 158/85
--- NOTE | 2018-12-15 04:13 | NUR ---
RECEIVED PT'S CARE AT 1918; PT. ON BED; AOX4; DURING ASSESSMENT C/O HEADACHE; REQUESTED IBUPROPHEN; PHYSICIAN NOTIFIED; ORDERS RECEIVED; IV CHANGED TO L. FA; CHANGE FROM [facility] TO [facility]; CHANGED FROM 207 TO 208 ROOM; AROUND 2300 PT. C/O SHAKINESS & RUE PAIN; PRN PAIN & ANTI-ANXIETY MEDICATION; RE-ASSESSMENT PT. RESTING WITH EYES CLOSE; ABLE TO REST FOR A FEW HOURS THROUGH THE NIGHT; CALLED APROPIATELY; ASSESSMENT CHARGED; FOLLOWING POC; MONITORING; WILL PASS ON REPORT.
[2018-12-15 04:55] VITALS: BP 160/87
[2018-12-15 08:08] VITALS: BP 148/84
--- NOTE | 2018-12-15 10:29 | NUR ---
workforce planner sent home health referral to [facility], and asked if they could accept patient. dp to follow up.
[2018-12-15 12:14] VITALS: BP 179/84
--- NOTE | 2018-12-15 16:59 | NUR ---
at request of patient to see she wanted to sign outside DNR form. Competed and left on chart for phys. Sp with patient and dtr at bedside. [facility]ed [facility] no longer able to accept patient. [facility] has RT therapist and can accept patient. Dtr reports someone from pallative care left a message on her machine she is unsure of agency. She reports they left message or paperwork at Dr Garcias office. Sp with Dr Riggs nothing left at his office. Reviewed with patient home with HH, [facility] as option and approached hospice discussion. Patient reports she is not ready for hospice but agreeable to [facility] home care. Called [facility] and sp with RN to detemine what referral was made for patient. RN reports they made referral to [facility]. Gave patient brochures with [facility] and pallative program. Discussed pallative program provided RN practioner once a month and can also have HH care as well. Patient reports she doesnt feel she can work with therapy. She is SOB with therapy and takes all her endurance. patient plans to discuss options with dtr this evening. Cannot confirm [facility] has pallative program. Attempted to call but afterhours.
[2018-12-15 17:26] VITALS: BP 177/80
--- NOTE | 2018-12-15 17:59 | NUR ---
PT ALERT AND ORIENTED TIMES FOUR. BP ELEVATED THIS EVENING AWAITING CALL BACK FROM DR. WARNER VSS. 95%4L. PT TOLERATES MEDS AND MEALS. PT UP TO BSC WITH STANDBY ASSIST. PRN MEDICATIONS GIVEN FOR ANXIETY. PT DAUGHTER AT BEDSIDE. WILL CONTINUE TO MONITOR.
--- NOTE | 2018-12-15 19:31 | HC ---
[facility] [place] [address] CONSULTATION Name: ELIDIA PERALTA Room #: 208-P ADM IN M.R.#: [id number] Admission: 12/13/18 ������������������ Attend Phys: Mandeep Riggs MD Discharge: ������������������ Date of : [birth year] Report #: [id number] THIS REPORT FOR: //name// CC: Mandeep Riggs DATE OF SERVICE: 12/13/2018 PULMONARY CONSULTATION REFERRAL PHYSICIAN: Dr. Riggs. REASON FOR REFERRAL: COPD exacerbation. HISTORY OF PRESENT ILLNESS: The patient is a 73-year-old white female with COPD, presents to the ED with progressive dyspnea. A pulmonary consultation was requested. The patient has known COPD/asthma overlap. She had smoked most of her life until a few years ago. She was in her usual state of health until for the past 2 weeks, she has had trouble with progressive dyspnea. The last hospitalization was in 09/2018. The patient has been doing fairly well until spring of this year. She states that the symptoms started with dyspnea and cough. Otherwise denies any sore throat, chest pain, night sweats or chills. Dyspnea became progressively worse on the night prior to presentation. Chest x-ray on admission was clear. 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 PAST SURGICAL HISTORY: Notable for left shoulder surgery, also as mentioned above tonsillectomy, prior trach placement in 2016. ALLERGIES: CEPHALOSPORINS CAUSING DYSPNEA AND PRURITUS, LIPITOR CAUSING MYALGIAS AND ARTHRALGIAS, LORAZEPAM CAUSES THE PATIENT TO FEEL WEIRD, HYDROCODONE CAUSES PRURITUS. MEDICATIONS: Home medication list reviewed. This include Alphagan eyedrops, Lasix 40 mg once a day, Robaxin 750 mg tablets 500 mg p.o. q.i.d., Spiriva once a day, Xanax 0.5 mg p.o. t.i.d., irbesartan/hydrochlorothiazide 150/12.[address] [address] CONSULTATION Name: ELIDIA PERALTA Room #: 208-P [facility] IN ..#: [id number] Admission: 12/13/18 ������������������ Attend Phys: Mandeep Riggs MD Discharge: ������������������ Date of : 49 Report #: [id number] a day, Symbicort 160 mcg 1 puff twice a day, Zantac 150 mg p.o. b.i.d., Mucinex 600 mg b.i.d., Zoloft 25 mg once a day, Singulair 10 mg once a day, Lumigan 0.01% 1 drop to both eyes at bedtime, nebulized albuterol q.i.d. p.r.n., Pravachol 40 mg once a day, Ventolin HFA 2 puffs p.r.n., Daliresp 500 mg once a day, Synthroid 0.05 mg once a day, Tawana 180 mg once a day, calcium supplements. FAMILY HISTORY: Noncontributory. SOCIAL HISTORY: The patient has smoked until few years ago. She has smoked most of her life. She denies any alcohol use. She is . REVIEW OF SYSTEMS: As mentioned above, otherwise 10-point system review negative. PHYSICAL EXAMINATION: GENERAL: She is awake, alert, in mild distress due to dyspnea. VITAL SIGNS: Temperature is 99 degrees Fahrenheit, pulse is 110, respiratory rate is 20, blood pressure 140/61 mmHg, saturation 93%. HEENT: Normocephalic, atraumatic. NECK: Supple, without lymphadenopathy or thyromegaly. CHEST: Breath sounds are decreased bilaterally with mild expiratory wheezes. CARDIOVASCULAR: Normal S1, S2. There are no murmurs or gallop. There is no JVD, no carotid bruit. Pulses are 2+/4+ bilaterally. ABDOMEN: Soft, nontender, no organomegaly or masses felt. GENITOURINARY: Deferred. RECTAL: Deferred. EXTREMITIES: There is no edema, cyanosis or clubbing. LABORATORY AND DIAGNOSTIC DATA: Chest x-ray is clear. Echocardiogram shows grossly normal study with ejection fraction 70%, hyperdynamic LV function, pulmonary artery pressure around 40 mmHg. Electrolytes: Sodium 130, potassium 3.3, chloride 82, CO2 45, BUN is 15, creatinine 0.6. WBC 4200, hemoglobin 12.3. Arterial blood gas revealed pH 7.35, pCO2 97, pO2 of 100 on 5 liters of O2. IMPRESSION: 1. Ooqwd-fy-[id number] hypercapnic hypoxic respiratory failure due to exacerbation of chronic obstructive pulmonary disease, severe impairment. 2. Chronic obstructive pulmonary disease/asthma overlap, severe impairment. 3. Chronic hypoxic hypercapnic respiratory failure, on continuous oxygen at home, apparently the patient had been on 2 liters of O2 at home. 4. Pulmonary hypertension due to severe pulmonary impairment. 5. Hypertension. RECOMMENDATION: I would recommend broad-spectrum antibiotics, corticosteroids and bronchodilators. DVT and GI prophylaxis recommended. Wean O2 for [facility] [address] [place] [address] CONSULTATION Name: ELIDIA PERALTA Room #: 208-P [facility] IN .R.#: [id number] Admission: 12/13/18 ������������������ Attend Phys: Mandeep Riggs MD Discharge: ������������������ Date of : 49 Report #: [id number] saturation 88-90% to avoid paradoxical hypercarbia. Thank you for this consultation. ��������������������������������������������� <ELECTRONICALLY SIGNED> ���������������������������������������� By: Phillip Hoff MD ��������������������������������������������� 12/15/18 1931 1735 2357 Phillip Hoff MD /nt
[2018-12-15 19:41] VITALS: BP 185/95
[2018-12-15 23:52] VITALS: BP 149/67
--- NOTE | 2018-12-16 03:31 | NUR ---
RECEIVED PT'S CARE AT 1920; PT. ON BED; AOX4; DURING ASSESSMENT SBP ELEVATED; PHYSICIAN NOTIFIED; ORDERS RECEIVED; C/O HEADACHE; PRN PAIN MEDICATION GIVEN; EDUCATED ABOUT NEW MEDICATION ORDERED (HEPARIN); ST. UNDERSTANDING; EDUCATED ABOUT HUMIDIFIER (STERILE WATER) WITH O2; ST. UNDERSTANDING; DECIDED TO TRY IT; RT NOTIFIED; EDUCATED ABOUT PRN C-PAP; ST. UNDERSTANDING; ABLE TO REST AFTER 2200 WITH EYES CLOSE; CALLS APROPIATELY; ASSESSMENT CHARGED; FOLLOWING POC; MONITORING; WILL PASS ON REPORT.
[2018-12-16 03:53] VITALS: BP 149/80
[2018-12-16 03:57] LABS: BUN 17 mg/dL (7-18); CALCIUM 9.3 mg/dL (8.5-10.1); CHLORIDE 83 mmol/L (98-107); CREATININE 0.6 mg/dL (0.6-1.0); GLUCOSE 142 mg/dL (74-106); SODIUM 131 mmol/L (136-145)
[2018-12-16 04:12] LABS: CO2 > 45 mmol/L (21-32)
[2018-12-16 04:38] LABS: HEMATOCRIT 38.7 % (37.0-47.0); HEMOGLOBIN 13.4 gm/dL (12.0-15.0); MCH 30.2 pg (26.0-34.0); MCHC 34.6 g/dL (28.0-37.0); MCV 87.4 fL (80.0-100.0); RBC 4.43 mil/uL (4.20-5.00); RDW 14.5 % (10.5-14.5)
[2018-12-16 07:31] VITALS: BP 185/99
[2018-12-16 11:08] VITALS: BP 152/85
[2018-12-16] MEDS ORDERED: PREDNISONE 10 M10 MG PO (12:51)
--- NOTE | 2018-12-16 13:26 | NUR ---
DP SENT [facility] A REFFERAL FOR PATIENT.
[2018-12-16 13:48] VITALS: BP 152/85
--- NOTE | 2018-12-16 15:32 | NUR ---
PT ALERT AND ORIENTED TIMES FOUR. VSS, 96%4L. PT UP TO BSC WITH STANDBY ASSIST. PT TOLERATES MEDS AND MEALS. POSSIBLE PLANS FOR DISCHARGE TODAY. PROGRESSING TOWARDS POC GOALS.
--- NOTE | 2018-12-16 15:47 | NUR ---
DC planning and supportive visit provided to pt this afternoon. Pt is agreeable to HH with [facility] and a Palliative MARINE ENGINE MECHANIC per [facility] [place]. Services and benefits discussed. Hospice brochures provided for future reference should the pt decide to transition her home services in the future. Out of the hospital DNR form is on the chart signed by the pt and the attending. The original will need to be sent home with the pt. Possible dc home later this evening or in the am. Pt was able to verbalize her feelings r/t grief and loss of her spouse and her only grandchild 2 years ago as well as her loss of independence with her lung disease. Pt indicates poor endurance, lack of appetite and anxiety with symptoms. Emotional support provided. Pt awaiting call back from her dtr and son regarding transport [place]. She will need her portable o2 tank and clothing. OR summary/referral info faxed to [facility] as well as [facility]. Both can accept. [facility] does not have a palliative MARINE ENGINE MECHANIC program at this time and Hospice is not able to accept the referral at this time. Care team updated. Possible dc this evening or in the am.
[2018-12-16 20:00] VITALS: BP 165/84
--- NOTE | 2018-12-17 05:33 | NUR ---
ASSUMED PT CARE AT 1900 WITH NO SIGN OF DISTRESS NOTED IN PT. PT IS ALERT AND ORIENTED. FAMILY AT BEDSIDE. ASSESSMENT CHARTED AND DOCUMENTED. SCHEDULED MEDS ADMINISTED TO PT. PT TOLERATED PO INTAKE. PT IS STABLE. PT IS BREATHING WITH NASAL CANULA ON. PT IS STABLE THROUGHOUT THE NIGHT. DENIES ANY FURTHER NEEDS AT THIS TIME.
[2018-12-17 06:16] VITALS: BP 169/81
[2018-12-17 08:08] VITALS: BP 182/92
--- NOTE | 2018-12-17 11:03 | NUR ---
AAO. ASSISTED TO BSC FOR BM WITH NO RESULT. MOM GIVEN ORDERED. SHE IS VERY FORGETFUL. STATES NO BM FOR TEN DAYS YET TWO SEPARATE STAFF CHARTED A LARGE, FORMED BM ON 12/15. C/O MEDICATION USED IN RESPIRATORY TREATMENTS, STATES IT MAKES HER HEART RACE AND MAKES HER FEEL ANXIOUS. TENTATIVE PLAN IS HOME WITH HOME HEALTH. WILL CONTINUE TO MONITOR.
--- NOTE | 2018-12-17 12:00 | NUR ---
PT DISCHARGING TODAY TO HOME WITH [facility] CARE ENERGY INFRASTRUCTURE ENGINEER. FAXED DC ORDERS/SUMMARY TO [facility] AND [facility] BOTH WERE RECEIVED AND THEY WILL NOTIFY PT TIME OF VISITS.
[2018-12-17 13:01] VITALS: BP 152/85
[2018-12-17 13:42] VITALS: BP 152/85
[2018-12-17 13:53] VITALS: BP 152/85
[2018-12-17 16:44] VITALS: BP 143/67
== END 2018-12-17 16:58 | disposition home health service (06) | DRG 189 ==
LOC: ER 14:01 → EROBS 15:24 → 2N 15:24 → ENTRNSPT 12-17 16:46 → 2N 12-17 16:58
PROVIDERS: Emergency Medicine; Internal Medicine Pulmonary Disease; ADMIT Family Medicine
DX: J96.22 Acute and chronic respiratory failure with hypercapnia (principal); J44.1 Chronic obstructive pulmonary disease with (acute) exacerbation; I10 Essential (primary) hypertension; M47.9 Spondylosis, unspecified; H40.9 Unspecified glaucoma; E89.0 Postprocedural hypothyroidism; J45.909 Unspecified asthma, uncomplicated; M81.0 Age-related osteoporosis without current pathological fracture; K21.9 Gastro-esophageal reflux disease without esophagitis; J96.21 Acute and chronic respiratory failure with hypoxia; Z51.5 Encounter for palliative care; I27.20 Pulmonary hypertension, unspecified; I95.9 Hypotension, unspecified; Z82.49 Family history of ischemic heart disease and other diseases of the circulatory system; Z83.6 Family history of other diseases of the respiratory system; Z90.49 Acquired absence of other specified parts of digestive tract; Z98.42 Cataract extraction status, left eye; Z98.41 Cataract extraction status, right eye; Z88.6 Allergy status to analgesic agent; Z88.8 Allergy status to other drugs, medicaments and biological substances; Z87.891 Personal history of nicotine dependence
CPT/HCPCS: 10081; 10194

== ENCOUNTER 2019-01-04 17:46 | Inpatient (IN) | payer OTHER ==
[~2019-01-04] VITALS: Ht 152.4 cm; Wt 44.9 kg
[2019-01-04 17:46] VITALS: BP 124/73
[2019-01-04 18:00] LABS: ABSOLUTE NEUTROPHILS 7.3 thou/uL (1.4-8.2); BASOPHILS 0.6 % (0.0-2.0); EOSINOPHILS 0.3 % (0.0-3.0); HEMATOCRIT 37.4 % (37.0-47.0); HEMOGLOBIN 12.4 gm/dL (12.0-15.0); LYMPHOCYTES 11.1 % (24.0-44.0); MCH 29.5 pg (26.0-34.0); MCHC 33.2 g/dL (28.0-37.0); MCV 88.8 fL (80.0-100.0); MONOCYTES 6.8 % (1.0-8.0); PLATELET COUNT 243 thou/uL (150-400); POLYS 81.2 % (36.0-66.0); RBC 4.21 mil/uL (4.20-5.00); RDW 14.2 % (10.5-14.5)
[2019-01-04 18:04] LABS: URINE BILIRUBIN NEGATIVE (Negative); URINE BLOOD TRACE (Negative); URINE CLARITY CLEAR; URINE COLOR YELLOW; URINE GLUCOSE-RANDOM* NEGATIVE (Negative); URINE KETONES NEGATIVE (Negative); URINE LEUKOCYTES NEGATIVE (Negative); URINE NITRITE NEGATIVE (Negative); URINE PROTEIN (DIPSTICK) NEGATIVE (Negative); URINE UROBILINOGEN 0.2 E.U./dl (0.2-1.0)
[2019-01-04 18:17] LABS: ALBUMIN 3.6 g/dL (3.4-5.0); BUN 9 mg/dL (7-18); CALCIUM 9.3 mg/dL (8.5-10.1); CHLORIDE 81 mmol/L (98-107); CREATININE 0.4 mg/dL (0.6-1.0); GLUCOSE 90 mg/dL (74-106); SGOT 26 U/L (15-37); SGPT 22 U/L (30-65); SODIUM 128 mmol/L (136-145); TOTAL BILIRUBIN 0.6 mg/dL (<0.1-1.0); TOTAL PROTEIN 6.6 g/dL (6.4-8.2)
[2019-01-04 18:20] LABS: POTASSIUM 2.9 mmol/L (3.5-5.1)
[2019-01-04 18:21] LABS: CO2 > 45 mmol/L (21-32)
[2019-01-04] MEDS ORDERED: POTASSIUM20 PO (18:55)
--- NOTE | 2019-01-04 20:15 | NUR ---
DONY ASSISTED WITH STANDBY ASSIST TO COMMODE AT BEDSIDE. PATIENT BECOMING INCREASINGLY ANXIOUS AND HAVING DIFFICULTY CATCHING HER BREATH. PATIENT SITTING ON BEDSIDE AND STATES THAT SHE NEEDS TO BE INTUBATED. THIS RN EDUCATED PATIENT REGARDING HER LAB LEVELS AND PRESENTATION. HOWEVER, STATED THAT THIS RN WOULD RELAY WISHES TO PHYSICIAN. DR. GARCIA AT BEDSIDE SPEAKING WITH PATIENT
[2019-01-04 20:22] VITALS: BP 138/75
--- NOTE | 2019-01-04 20:35 | NUR ---
AWAITING BIPAP AND INPATIENT ROOM ASSIGNMENT
--- NOTE | 2019-01-04 21:13 | NUR ---
REPORT TO INPATIENT RNMISSY
[2019-01-04 21:15] VITALS: BP 131/77
[2019-01-04 22:40] VITALS: BP 96/57
--- NOTE | 2019-01-04 23:26 | NUR ---
PATIENT WAS A NEW ADMISSION TO THE UNIT THIS SHIFT. SHE ARRIVED VIA CART FROM THE ER AND WAS ABLE TO AMBULATE TO THE BED WITH ASSISTANCE INCDENT FREE. PATIENT IS ALERT AND ORIENTED AND WILL BE ABLE TO PARTICIPATE IN ADMISSION PROCESS AND CALL APPROPRIATELY FOR NEEDS. NURSE TO COMPLETE ADMISSION AND INITIATE CARE PLAN.
[2019-01-05 04:24] VITALS: BP 109/69
[2019-01-05 07:18] VITALS: BP 124/76
[2019-01-05 07:35] LABS: BUN 14 mg/dL (7-18); CALCIUM 9.7 mg/dL (8.5-10.1); CHLORIDE 80 mmol/L (98-107); CREATININE 0.5 mg/dL (0.6-1.0); GLUCOSE 86 mg/dL (74-106); SODIUM 128 mmol/L (136-145)
[2019-01-05 07:38] LABS: CO2 > 45 mmol/L (21-32); POTASSIUM 2.9 mmol/L (3.5-5.1)
--- NOTE | 2019-01-05 08:36 | EKG ---
[address] [employer] [place] [address] ELECTROCARDIOGRAM REPORT Name: ELIDIA PERALTA Room #: 359-P ADM IN M.R.#: [id number] ������������������ Admission: 01/04/19 ������������������ Attend Phys: Mandeep Riggs MD Discharge: ������������������ Date of : 49 Report #: [id number] ����������������������������������������������������������������� [id number] THIS REPORT FOR: //name// [facility] ED Test Date: 2019-01-04 Test Time: 17:44:59 Pat Name: ELIDIA PERALTA Department: Room: 359 Gender: F Resident Caregiver: DELON : 1945 Requested By: Mookie Dennison Order Number: [id number] MD: Esau Bauman Measurements Intervals [place] Rate: 111 P: 77 [place]: 141 QRS: -65 QRSD: 97 T: 81 QT: 333 QTc: 453 Interpretive Statements Sinus tachycardia Atrial premature complex Right atrial enlargement Inferior infarct, old Poor R wave progression Compared to ECG 12/13/2018 14:17:55 Atrial premature complex(es) now present Electronically Signed On 01-05-2019 8:36:09 CDT by Esau Bauman [email or web address] ��������������������������������������������� <ELECTRONICALLY SIGNED> ���������������������������������������� By: sEau Bauman MD, [facility] ��������������������������������������������� 01/05/19 0836 1744 1744 Esau Bauman MD, [facility] /EPI
[2019-01-05 16:19] VITALS: BP 155/90
--- NOTE | 2019-01-05 16:52 | NUR ---
INITIAL ASSESSMENT: Received consult for discharge planning. KEVIN reviewed chart and spoke with nursing. Pt was admitted from home due to hypoxia. Pt with hx of COPD. Pt was recently discharged home with [facility] RN services. KEVIN met with pt at bedside. Introduced role of SW. Pt is alert/orientated x 4. Pt reports she lives at home alone. Pt is legally blind. Pt has a son and dtr who are involved in her care. Pt states she is normally on 3.5-4L of O2, which is provided by [facility]. Pt remains on service with both [facility] and [facility]. Pt states she wants to go home when medically stable for discharge. KEVIN is following to assist as needed with discharge planning.
--- NOTE | 2019-01-05 18:19 | NUR ---
pt is A&O X3, PT is contnuingo2 3.5-4 L/MIN/NC, PT has sob with activities, pt's vs are stable today, pt has IV kcl 20 meq x2 bags ( 100ml/bag ) and run slowly for potassium 2.9, pt gets up to BSC with assist, pt denies pain and sob at this time, pt has slowly meeting care plan goals at this time.
[2019-01-05 19:34] VITALS: BP 151/85
[2019-01-05 23:20] VITALS: BP 134/72
[2019-01-06 03:19] VITALS: BP 143/77
[2019-01-06 05:54] LABS: CALCIUM 9.5 mg/dL (8.5-10.1); CREATININE 0.5 mg/dL (0.6-1.0); POTASSIUM 3.6 mmol/L (3.5-5.1)
[2019-01-06 07:26] VITALS: BP 154/90
--- NOTE | 2019-01-06 07:56 | NUR ---
SLEPT MOST OF SHIFT. SITS ON SIDE OF BED AT TIMES TO CATCH BREATH. ASSIST UP TO COMODE NEEDED. PATIENT WITH WORSONING SHORTNESS OF AIR WITH ACTIVITY. WORKING ON GOALS AND PLAN OF CARE FOR NOC. PROGRESSING SLOWLY TOWARDS DISCHARGE GOALS. CONTINUE TO ASSES FREQUENTLY.
[2019-01-06] MEDS ORDERED: DOXYCYCLINE 10100 MG PO (12:41)
[2019-01-06] MEDS ORDERED: PREDNISONE 10 M10 MG PO (12:42)
[2019-01-06 12:50] VITALS: BP 154/90
--- NOTE | 2019-01-06 13:02 | NUR ---
DISCHARGE ORDERS COMPLETED PER ATTENDING. PATIENT DISCHARGING TO HOME WITH [facility] AND [facility]. PATIENT IS CURRENT WITH BOTH SERVICES. DISCHARGE ORDERS FAXED TO [facility], VERIFIED RECEIVED. [facility] TO FACILITATE HH NEEDS. DISCHARGE ORDERS FAXED TO [facility]TA[facility], CALL PLACED TO [facility], SPOKE WITH ENEIDA. VERIFIED ORDERS RECEIVED, [facility] TO FACILITATE PALLIATIVE CARE NEEDS. UNIT SW AWARE.
--- NOTE | 2019-01-06 14:32 | NUR ---
KEVIN notified by nursing that pt can discharge home today. SW will resume [facility] services. KEVIN met with pt at bedside to discuss discharge plan. Pt states that her dtr has her house keys and she is unsure if she will be able to go home today. Pt is waiting to hear back from her dtr. data processing systems project planner faxed clinical info/orders to [facility] and [facility]. Contact info for both providers placed in pt's discharge summary. KEVIN updated attending physician. Should pt's dtr be able to fruit picker pt or meet pt at her home today, discharge plans are in place. KEVIN is following to assist as needed with discharge planning.
[2019-01-06 15:52] VITALS: BP 147/89
--- NOTE | 2019-01-06 18:15 | NUR ---
PATIENT ASSESSMENTS DOCUMENTED. SHE HAS RESTED QUIETLY AND CALMLY THROUGHOUT THE DAY. SHE HAS DENIED NEEDS. SHE DID EXPRESS PAIN THAT WAS PARTIALLY RELIEVED BY IBUPROFEN THAT WAS ORDERED BY PATIENTS PHYSICIAN. NURSE TO CONTINUE TO MONITOR PATIENT STATUS.
[2019-01-06 19:09] VITALS: BP 162/83
[2019-01-07 03:55] VITALS: BP 141/84
--- NOTE | 2019-01-07 04:21 | NUR ---
PATIENT IS ADVANCING IN HER CARE PLAN. VITAL SIGNS STABLE WITH PATIENT HAVING NO COMPLAINTS OF PAIN OR NAUSEA. FULLY ORIENTED, PATIENT IS ABLE TO CALL APPROPRIATELY FOR NEEDS AND PARTICIPATE IN CARE. BREATHING STABLE ON HOME DOSE OF OXYGEN EVIDENCED BY SPOT OXYGENATION CHECKS. UP MULTIPLE TIMES TO THE BEDSIDE COMMODE WITH ASSISTANCE INCIDENT FREE. PATIENT IS ANXIOUS FOR DISCHARGE TODAY. CONTINUE PLAN OF CARE.
[2019-01-07 07:22] VITALS: BP 132/75
--- NOTE | 2019-01-07 12:13 | NUR ---
ASSESSMENT CHARTED. PT ALERT AND ORIENTED. VSS. RECEIVED SCHEDULED IV ABX. ORDERS GIVEN TO DISCHARGE PT TO HOME. DISCHARGE INSTRUCTIONS GIVEN TO PT. PT VERBERLIZE UNDERSTANDING.
--- NOTE | 2019-01-07 15:05 | NUR ---
DISCHARGE NOTE: SW reviewed chart and spoke with nursing and attending physician. Pt is medically stable for discharge home today. Pt will resume HH services through [facility]. assistant media planner notified agencies. Pt's family provided transportation home. No additional SW needs identified at this time, but is available to assist should needs arise.
== END 2019-01-07 12:46 | disposition home health service (06) | DRG 189 ==
LOC: ER 17:46 → EROBS 19:57 → 3W 19:57
PROVIDERS: Emergency Medicine; ADMIT Family Medicine
DX: J96.21 Acute and chronic respiratory failure with hypoxia (principal); J44.1 Chronic obstructive pulmonary disease with (acute) exacerbation; Z68.1 Body mass index [BMI] 19.9 or less, adult; E83.42 Hypomagnesemia; E87.6 Hypokalemia; M47.9 Spondylosis, unspecified; M19.042 Primary osteoarthritis, left hand; M19.041 Primary osteoarthritis, right hand; H40.9 Unspecified glaucoma; E89.0 Postprocedural hypothyroidism; J45.909 Unspecified asthma, uncomplicated; M81.0 Age-related osteoporosis without current pathological fracture; R00.0 Tachycardia, unspecified; F41.9 Anxiety disorder, unspecified; J84.10 Pulmonary fibrosis, unspecified; I11.0 Hypertensive heart disease with heart failure; J20.9 Acute bronchitis, unspecified; I50.9 Heart failure, unspecified; K21.9 Gastro-esophageal reflux disease without esophagitis; Z83.6 Family history of other diseases of the respiratory system; Z82.49 Family history of ischemic heart disease and other diseases of the circulatory system; Z90.49 Acquired absence of other specified parts of digestive tract; Z98.42 Cataract extraction status, left eye; Z98.41 Cataract extraction status, right eye; Z93.1 Gastrostomy status; Z88.6 Allergy status to analgesic agent; Z88.8 Allergy status to other drugs, medicaments and biological substances; Z87.891 Personal history of nicotine dependence; Z79.899 Other long term (current) drug therapy
CPT/HCPCS: 10879

== ENCOUNTER 2019-01-30 23:22 | Inpatient (IN) | payer OTHER ==
[~2019-01-30] VITALS: Ht 152.4 cm; Wt 48.1 kg
--- NOTE | ~2019-01-30 | EMS ---
[place] [address] EMS Patient Care Report Name: ELIDIA PERALTA Room #: REG FAY Holder#: [id number] Admission: 01/30/19 Attend Phys: Discharge: Date of : 49 Report #: [id number] THIS REPORT FOR: //name// Report Transmitted: 01/30/2019 23:19 EMS Care Summary [place], [place]/[facility] Incident [id number] @ 01/30/2019 22:57 Incident Location [address] [place] [address] Patient ELIDIA PERALTA Female, 73 Years 1945 Patient Address [address] [place] [address] Patient History Congestive Heart Failure (CHF),Chronic Obstructive Pulmonary Disease (COPD),Osteoarthritis,Anxiety,Hypokalemia,Supraventricular Tachycardia (SVT),Respiratory Failure, Patient Allergies Hydrocodone,Antibiotics allergy,Atorvastatin, Patient Medications Xanax, Lasix, Robaxin, Pravastatin, Doxycycline, Prednisone, Alphagan, Albuterol, Tawana, Guaifenesin, Synthroid, Singulair, Sertraline, Spiriva, Symbicort, Lumigan, Atrovent, Chief Complaint ALTERED LOC - LETHARGY Disposition Transported No Lights/[place] Dispatch Reason Breathing Problem Transported To [facility] [address] [place] [address] EMS Patient Care Report Name: ELIDIA PERALTA Room #: [facility]#: [id number] Admission: 01/30/19 Attend Phys: Discharge: Date of : 49 Report #: [id number] SCENE: ON ARRIVAL PT FOUND LYING IN BED AT ADDRESS PROVIDED. PT DAUGHTER ON SCENE REPORTS PT HAS BEEN MORE LETHARGIC TODAY AND HAS LOW OXYGEN SATS. PT DAUGHTER HAS A PORTABLE PULSE OX, HOWEVER, PT IS WEARING FAKE PRESS ON NAILS. PT IS ON OXYGEN VIA NC AT 3 LPM. PT DAUGHTER THEN REPORTS PT HAS BEEN LETHARGIC SINCE TAKING HER NIGT TIME MEDS, INCLUDING XANAX. PT DAUGHTER REQUESTS TRANSPORT TO [facility]. PT CARRIED TO EMS STRETCHER. AMBULANCE: PT OXYGEN SATURATION IN THE HIGH 80S TO LOW 90S. PT PLACED ON NRB AT 15, WITH IMPROVED SATS IN THE HIGH 90S. PT LUNG SOUNDS DECREASED AND WHEEZY. IV ESTABLISHED. VITALS MONITORED THROUGHOUT TRANSPORT. NO CHANGES IN PT STATUS EN ROUTE. Initial Vitals @23:04P: 116,R: 22,Pain: 0/10,GCS: 14,Revised Trauma: 12, @23:17P: 112,R: 18,BP: 150/84,GCS: 14,SpO2: 96,Revised Trauma: 12, @23:12P: 111,R: 20,BP: 153/68,GCS: 14,Glucose: 130,SpO2: 92,Revised Trauma: 12, Assessments @23:04MENTAL:Person Oriented,Time Oriented,Place Oriented,Event Oriented,SKIN:HEENT:Head/Face: No Abnormalities,Neck/Airway: No Abnormalities,LUNG SOUNDS:General: No Abnormalities,ABDOMEN:General: No Abnormalities,PELVIS//GI:No Abnormalities,EXTREMITIES:Left Leg: Edema,Right Leg: Edema,Left Arm: No Abnormalities,Right Arm: No Abnormalities,PULSE:NEURO:No Abnormalities,@23:18MENTAL:Person Oriented,Event Oriented,Place Oriented,Time Oriented,SKIN:HEENT:Head/Face: No Abnormalities,Neck/Airway: No Abnormalities,LUNG SOUNDS:ABDOMEN:PELVIS//GI:EXTREMITIES:PULSE:NEURO: Impression Altered Mental Status Procedures @23:04ALS AssessmentResponse: UnchangedSucceeded@PTAOxygen FlowRate: 4 Device: Nasal Cannula (NC) Response: UnchangedSucceeded@23:08Oxygen FlowRate: 15 Device: Non Re-breather Mask (NRB) Response: ImprovedSucceeded@23:11Saline Lock 10cc (18 ga) Site: Hand-LeftResponse: UnchangedSucceeded@23:07StretcherResponse: Unchanged@23:113-Lead ECGResponse: UnchangedSucceeded Timeline PHOTOGRAPHIC ENLARGER OPERATOR,Oxygen FlowRate: 4 Device: Nasal Cannula (NC) Response: UnchangedSucceeded, 22:55,Call Received 22:55,Dispatch Notified 22:57,Dispatched 22:58,En Route 23:03,On Scene [address] [address] EMS Patient Care Report Name: ELIDIA PERALTA Room #: REG FAY Holder#: [id number] Admission: 01/30/19 Attend Phys: Discharge: Date of : 49 Report #: [id number] 23:04,At Patient 23:04,BP: 148/ M,PULSE: 116,RR: 22 R,SPO2: Ox,ETCO2: ,BG: ,PAIN: 0,GCS: 14, 23:04,ALS Assessment,Response: UnchangedSucceeded, 23:07,Stretcher,Response: Unchanged 23:08,Oxygen FlowRate: 15 Device: Non Re-breather Mask (NRB) Response: ImprovedSucceeded, 23:11,3-Lead ECG,Response: UnchangedSucceeded, 23:11,Saline Lock 10cc 18 ga Site: Hand-Left,Response: UnchangedSucceeded, 23:12,BP: 153/68 M,PULSE: 111,RR: 20 R,SPO2: 92 Ox,ETCO2: ,B,PAIN: ,GCS: 14, 23:15,Depart Scene 23:17,BP: 150/84 M,PULSE: 112,RR: 18 R,SPO2: 96 Ox,ETCO2: ,BG: ,PAIN: ,GCS: 14, 23:26,At Destination 23:48,Call Closed Disclaimer v1.1 Copyright 2019 [facility] This EMS Care Summary contains data elements from the applicable legal record (which may be displayed differently). It is designed to provide pertinent information for the following purposes: continuity of care, clinical quality, and state data reporting. The complete legal record is available to ED staff and administrators of the receiving hospital in ES's Patient Tracker. All data is provided "as is."
[~2019-01-30 23:22] MED LIST changes: +DOXYCYCLINE 10100 MG PO
[2019-01-30 23:23] VITALS: BP 145/59
[2019-01-30 23:47] LABS: HEMATOCRIT 34.3 % (37.0-47.0); HEMOGLOBIN 11.3 gm/dL (12.0-15.0); MCH 29.8 pg (26.0-34.0); MCHC 33.1 g/dL (28.0-37.0); MCV 90.3 fL (80.0-100.0); RBC 3.8 mil/uL (4.20-5.00); RDW 14.7 % (10.5-14.5); WBC 12.8 thou/uL (4.0-11.0)
[2019-01-30 23:50] LABS: BUN 21 mg/dL (7-18); CALCIUM 9.2 mg/dL (8.5-10.1); CHLORIDE 90 mmol/L (98-107); CREATININE 0.5 mg/dL (0.6-1.0); GLUCOSE 128 mg/dL (74-106); POTASSIUM 3.3 mmol/L (3.5-5.1); SODIUM 137 mmol/L (136-145)
[2019-01-30 23:54] LABS: CO2 > 45 mmol/L (21-32)
[2019-01-30 23:59] LABS: TROPONIN-I 0.08 ng/mL (<0.06)
[2019-01-31] LABS: BE(vivo) 22.1 mmol/L (-2 to +3); HCO3 51.5 mmol/L (22.0-26.0); PCO2 86.1 mmHg (35.0-45.0); PO2 69.6 mmHg (80.0-100.0); pH 7.395 (7.360-7.450); sO2 92.7 % (92.0-98.0)
--- NOTE | 2019-01-31 00:18 | NUR ---
PATIENT SLEEPING. WARM BLANKET PROVIDED. REMAINS ON 50% VENTI MASK. VITAL SIGNS REMAIN STABLE. DAUGHTER TOLD EMS THAT PATIENT IS MORE LETHARGIC. HOWEVER, TOOK HOME NIGHT TIME MEDICATIONS (INCLUDING XANAX).
--- NOTE | 2019-01-31 01:53 | NUR ---
PATIENT TO CT AT THIS TIME
[2019-01-31 02:53] LABS: URINE BILIRUBIN NEGATIVE (Negative); URINE BLOOD NEGATIVE (Negative); URINE CLARITY CLEAR; URINE COLOR YELLOW; URINE GLUCOSE-RANDOM* NEGATIVE (Negative); URINE KETONES TRACE (Negative); URINE LEUKOCYTES-REFLEX NEGATIVE (Negative); URINE NITRITE-REFLEX NEGATIVE (Negative); URINE PROTEIN (DIPSTICK) NEGATIVE (Negative); URINE UROBILINOGEN 0.2 E.U./dl (0.2-1.0)
--- NOTE | 2019-01-31 03:13 | NUR ---
PATIENT REQUIRING CONSTANT REDIRECTION TO NOT PLACE HER LEGS BETWEEN BED RAILS FOR HER SAFETY. FAMILY NOT SITTING AT BEDSIDE AND PATIENT NOT SAFE TO SIT AT BEDSIDE WITHOUT FAMILY PRESENT WITH RAILING DOWN. IMPULSIVE. IN ORDER TO PROTECT PATIENT AND REMIND HER TO NOT PLACE HER LEGS THROUGH THE BED RAILS, SEIZURE PADS PLACED ON BED RAILS FOR SAFETY. AWAITING INPATIENT BED ASSIGNMENT AT THIS TIME
[2019-01-31 03:21] VITALS: BP 138/87
--- NOTE | 2019-01-31 03:22 | NUR ---
HAND OFF TOOL SENT TO 4TH FLOOR
--- NOTE | 2019-01-31 03:27 | NUR ---
REPORT TO TAMIKO
[2019-01-31 03:35] VITALS: BP 150/96
[2019-01-31 04:36] VITALS: BP 156/95
--- NOTE | 2019-01-31 05:44 | NUR ---
NEW PT ARRIVED THE UNIT @0400. PT ALERT TO SELF, CONFUSE AND FORGETFUL. PT ON 50% VENTI MASK AND SATS HAVE BEEN WNL. ASSESSMENT COMPLETED. V/S STABLE EXCEPT BP WHICH IS ELEVATED (156/95). PT DENIES PAIN. PT IS WEAK BUT DENIES TO USE THE BEDPAN. PT WAS ABLE TO GET TO THE BSC WITH 2 STAFF STANDBY. DAUGHTER PHIL IS DPOA AND WAS ABLE TO ANSWER/ASK QUESTIONS ON BEHALF PT. PT IS A HIGH FALL RISK. FALL PREC IN PLACE. CALL SAUL WITHIN REACH. WILL CON'T TO MONITOR
[2019-01-31 08:00] VITALS: BP 148/93
--- NOTE | 2019-01-31 08:00 | EKG ---
[address] [place] [address] ELECTROCARDIOGRAM REPORT Name: ELIDIA PERALTA Room #: 461-P ADM IN M.R.#: [id number] Admission: 01/31/19 Attend Phys: Mandeep Riggs MD Discharge: Date of : 49 Report #: [id number] THIS REPORT FOR: //name// [facility] ED Test Date: 2019-01-30 Test Time: 23:30:35 Pat Name: ELIDIA PERALTA Department: Room: 461 Gender: F Cashier Clerk: [place] : 1945 Requested By: Cory Cam Order Number: [id number] MD: Esau Bauman Measurements Intervals [place] Rate: 121 P: 76 [place]: 133 QRS: -48 QRSD: 88 T: 61 QT: 327 QTc: 464 Interpretive Statements Sinus tachycardia Atrial premature complexes Leftward axis RSR' in V1 or V2, probably normal variant Inferior infarct, old Probable anteroseptal infarct, old Compared to ECG 01/04/2019 17:44:59 no significant change was found Electronically Signed On 01-31-2019 8:00:07 CDT by Esau Bauman [email or web address] <ELECTRONICALLY SIGNED> By: Esau Bauman MD, [facility] 01/31/19799 29 29 Esau Bauman MD, [facility] /EPI
[2019-01-31 15:00] VITALS: BP 136/72
--- NOTE | 2019-01-31 15:25 | NUR ---
PATIENT REMAINS QUITE CONFUSED THROUGH THE DAY. NBOT EASILY REDIRECTED. FAMILY HERE AND STATED SHE IS MORE CONFUSED THAN USUAL. SHE IS ALSO TACHY. DR POTTS NOTIFIED. SEE ONETIME NEW ORDERS.
--- NOTE | 2019-01-31 16:30 | EKG ---
[address] [address] ELECTROCARDIOGRAM REPORT Name: ELIDIA PERALTA Room #: 461-P ADM IN M.R.#: [id number] Admission: 01/31/19 Attend Phys: Mandeep Riggs MD Discharge: Date of : 49 Report #: [id number] THIS REPORT FOR: //name// [facility] Test Date: 2019-01-31 Test Time: 10:20:27 Pat Name: ELIDIA PERALTA Department: Room: 461 Gender: F Net Developer Architect: YOAN : 1945 Requested By: Mandeep Riggs Order Number: [id number] MD: Esau Bauman Measurements Intervals [place] Rate: 116 P: 76 [place]: 131 QRS: -51 QRSD: 92 T: 68 QT: 312 QTc: 434 Interpretive Statements Sinus tachycardia Atrial premature complexes RSR' in V1 or V2, probably normal variant Inferior infarct, old Probable anteroseptal infarct, old Compared to ECG 01/30/2019 23:30:35 No significant change was found Electronically Signed On 01-31-2019 16:30:04 CDT by Esau Bauman [email or web address] <ELECTRONICALLY SIGNED> By: Esau Bauman MD, [facility] 01/31/19 1630 1020 1020 Esau Bauman MD, [facility] /EPI
[2019-01-31 20:33] VITALS: BP 142/64
[2019-02-01 07:20] VITALS: BP 131/58
--- NOTE | 2019-02-01 07:48 | NUR ---
Assumed pt care at 1900,pt alert and oriented X3 and able needs known. Denies pain on assessment. VSS. Oxygen titrated back to 5L sats <88%. Has a congested cough with thin clear phlegm. Fall precautions in place.
[2019-02-01 13:54] VITALS: BP 148/69
--- NOTE | 2019-02-01 14:20 | NUR ---
PT ADMITTED RELATED TO COPD EMPHYSEMA, SOB. CM REVIEWED CHART AND SPOKE WITH CARE TEAM. CM MET WITH PT AT BEDSIDE YESTERDAY, PT WASN'T ABLE TO ANSWER ASSESSMENT QUESTIONS. CM CALLED AND TRIED TO SPEAK WITH PT'S DTR BUT SHE DIDN'T ANSWER AND HER VOICEMAIL IS FULL. CM FOLLOWED UP WITH CARE TEAM THIS AM AND NURSE INDICATED THAT SHE IS ALERT TO SELF, PLACE, AND YEAR. CM TRIED PT'S DTR/DPOA AGAIN AND NO ANSWER AND CAN'T LEAVE VOICEMAIL. CM CALLED PT'S SON ARELI AND HE INDICATED THAT PT RESIDES IN A HOUSE ALONE BUT THAT HIS SISTER HAD BEEN STAYING WITH HER. HE INDICATED THAT PT HAS A HOSPITAL BAD AT HOME, HOME O2 THROUGH [facility]. HE CONFIRMED THAT PT HAD BEEN ON SERVICE WITH [facility] ALODIZE MACHINE HELPER. CM INDICATED THAT PT IS RECOMMENDING THAT PT ELECT HOSPICE SERVICES UPON DC. HE WAS AGREEABLE BUT CM UNABLE TO REACH PT'S DPOA/DTR/ PRIMARY CAREGIVER. CM HAD SENT REFERRAL TO [facility] AND HAD SPOKE WITH THEIR LIAISON MON[facility]. SHE RECIEVED INFO BUT WAS ALSO UNABLE TO REACH DTR/DPOA RASHID. CM NOTIFIED DR. POTTS. CM TO FOLLOW INDICATED WITH DC PLANNING. CM ROLE INTRODUCED.
[2019-02-01 19:42] VITALS: BP 137/64
--- NOTE | 2019-02-01 19:50 | NUR ---
Received awake on bed. Due medications given as prescribed, able to swallow tablets w/o difficulty. A+O to self, place and year with on and off episodes of confusion; re-oriented frequently. With oxygen at 5lpm via nasal cannula, skin behind ears intact, on continous pulse oximeter, probe changed today. Assisted pt in ADLs. With edema at Lower extremities, legs kept elevated. With SL at L hand- intact and flushing well. Pt able to use bedside commode to pass urine with walker and gait belt. Visited by relatives today. Pt seen by Dr Riggs today, possible discharge- CM informed. Falls risk- falls bundle in place. As per CM, she can't contact pt's daughter who's DPOA- will inform Dr Riggs about it. Pt able to sit out on chair.
--- NOTE | 2019-02-02 02:38 | NUR ---
ASSUMED CARE OF PT @1900. PT SOUNDED MORE A&O THAN SHE WAS DURING THE DAY. PT WAS ABLE TO TELL ME ALL HER MEDS AND HOW SHE TAKES THEM. PT IS ON 5L OF O2 AND SATS HAS BEEN FLUCTUATING BETWEEN 86 AND 94% PT IS ON A CONT. O2 MONITORING. AMBULATES WITH 1 ASSIST AND A WALKER TO BS. FALL PREC IN PLACE.
[2019-02-02 07:32] VITALS: BP 150/87
--- NOTE | 2019-02-02 09:29 | NUR ---
PT SITTING ON SIDE OF BED ALERT XS. EATING BREAKFAST. NO PAIN AT PRESENT. O2 ON ORDERED. LUNGS DIM NO COUGH. BS'S POSITIVE XS 4 HAD BM 02/01/19. PT USES BSC OR BATHROOM. TOOK AM MEDS WITH YOGURT AND NO DIFFICULTY. PT IS PLEASANT AND COOPERATIVE WITH CARE.
[2019-02-02 12:17] VITALS: BP 150/87
--- NOTE | 2019-02-02 12:19 | NUR ---
CM MET WITH PT AND HER SON ARELI AT BEDSIDE THIS AM. THEY INDICATED THAT PT'S DTR RASHID HAD SPOKEN WITH MONET WITH [facility] AND THAT THEY WERE MEETING AT 10:00. MONET MET WITH THEM FOR ABOUT 2HRS AND THEY INDICATED THAT THEY DIDN'T WANT TO ELECT HOSPICE SERVICES AT THIS TIME. PT ADN FAMILY WANT TO RESUME [facility] UPON DISCHARGE TODAY. PT'S FAMILY ARE AWARE AND AGREEABLE. PT'S DTR WILL PROVIDE TRANSPORT HOME THIS DAY. [facility]. NO OTHER CM INTERVENTION INDICATED. CASE CLOSED.
[2019-02-02 12:44] VITALS: BP 150/87
--- NOTE | 2019-02-02 13:04 | NUR ---
DISCHARGE PAPERS GONE OVER WITH PATIENT SIGNED AND COPY IN CHART. IV ACSESS DCD. ALL BELONINGS PACKED AND SENT WITH PATIENT. NO PAIN OR RESP DISTRESS AT DISCHARGE.
[2019-02-02 13:24] VITALS: BP 150/87
--- NOTE | 2019-02-02 13:47 | NUR ---
PATIENT DISCHARGE ORDERS COMPLETED PER ATTENDING. PATIENT DISCHARGING TO HOME WITH [facility] AND [facility]. DAUGHTER TO TRANSPORT PATIENT TO HOME. DISCHARGE ORDERS FAXED TO [facility], VERIFIED RECEIVED. [facility] TO FACILITATE HH NEEDS. DISCHARGE ORDERS FAXED TO [facility], VERIFIED RECEIVED. [facility] TO FACILITATE PATIENTS PALLIATIVE CARE NEEDS. UNIT SW AWARE.
== END 2019-02-02 13:27 | disposition home health service (06) | DRG 189 ==
LOC: ER 23:22 → 4W 01-31 03:10 → EROBS 01-31 03:10 → 4W 01-31 03:36 → ENTRNSPT 02-02 13:02 → EDTRNSPTSTS 02-02 13:06 → 4W 02-02 13:27
PROVIDERS: Emergency Medicine; ADMIT Family Medicine
DX: J96.21 Acute and chronic respiratory failure with hypoxia (principal); J44.1 Chronic obstructive pulmonary disease with (acute) exacerbation; I10 Essential (primary) hypertension; K58.9 Irritable bowel syndrome, unspecified; M19.042 Primary osteoarthritis, left hand; M19.041 Primary osteoarthritis, right hand; J96.22 Acute and chronic respiratory failure with hypercapnia; M47.9 Spondylosis, unspecified; E89.0 Postprocedural hypothyroidism; J45.909 Unspecified asthma, uncomplicated; K21.9 Gastro-esophageal reflux disease without esophagitis; M81.0 Age-related osteoporosis without current pathological fracture; Z93.1 Gastrostomy status; Z90.49 Acquired absence of other specified parts of digestive tract; Z88.6 Allergy status to analgesic agent; Z88.8 Allergy status to other drugs, medicaments and biological substances; Z87.891 Personal history of nicotine dependence; Z82.49 Family history of ischemic heart disease and other diseases of the circulatory system; Z83.6 Family history of other diseases of the respiratory system
CPT/HCPCS: 10040; 10045